=== PATIENT | male | born 1960 | race Caucasian/White ===

== ENCOUNTER 2017-10-12 16:05 | Emergency (ER) | payer BC, OTHER ==
[~2017-10-12] VITALS: Ht 177.8 cm; Wt 95.3 kg
[~2017-10-12 16:05] MED LIST: ASPIRIN81 MG PO; LASIX20 MG PO; LISINOPRIL-HCT1 EAC3 PO
[2017-10-12] MEDS ORDERED: HYDROMORPHONE 1MG/1ML INJ IV STA ×2 (16:17→22:08)
[2017-10-12] MEDS ORDERED: ONDANSETRON HCL INJ 2 MG/ML VIAL IV STA (16:17)
[2017-10-12] MEDS ORDERED: SODIUM CHLORIDE FLUSH 10 ML SYR INJ PRN (16:30)
[2017-10-12 16:56] LABS: BASOPHILS # (AUTO) 0.1 (0.0-0.1); BASOPHILS % 0.3 % (0.0-1.0); EOSINOPHILS # (AUTO) 0.2 (0.0-0.4); EOSINOPHILS % 1.2 % (0.0-6.0); HEMATOCRIT 39.5 % (38.2-49.6); HEMOGLOBIN 13.7 g/dL (14.0-18.0); LYMPHOCYTES # (AUTO) 3.6 (1.0-3.2); LYMPHOCYTES % 18.7 % (18.0-39.1); MEAN CORPUSCULAR HEMOGLOBIN 28.5 pg (28-32); MEAN CORPUSCULAR HGB CONC 34.7 g/dL (31-35); MEAN CORPUSCULAR VOLUME 82.3 fL (81-99); MONOCYTES % 4.9 % (4.4-11.3); NEUTROPHILS # (AUTO) 14.2 (2.1-6.9); NEUTROPHILS % 73.4 % (38.7-80.0); PLATELET COUNT 275 x10e3/uL (140-360); RED CELL DISTRIBUTION WIDTH 12.7 % (11.7-14.4)
[2017-10-12 17:20] LABS: ALBUMIN 4.4 g/dL (3.5-5.0); ALBUMIN/GLOBULIN RATIO 1.4 (0.8-2.0); ANION GAP 17.3 mmol/L (8-16); CALCIUM 9.5 mg/dL (8.4-10.2); CREATININE, SERUM 1.55 mg/dL (0.72-1.25); POTASSIUM 3.3 mmol/L (3.5-5.1)
[2017-10-12] MEDS ORDERED: MORPHINE SULFATE 2 MG/ML SYR ONE (18:23)
[2017-10-12] MEDS ORDERED: LEVOCETIRIZINE D5 MG PO (18:36)
[2017-10-12] MEDS ORDERED: MORPHINE SULFATE 5 MG/ML VIAL IV ONE (18:45)
[2017-10-12 18:51] LABS: BILIRUBIN,URINE NEGATIVE (NEGATIVE); CLARITY,URINE CLEAR (CLEAR); COLOR,URINE YELLOW (YELLOW); KETONES,URINE NEGATIVE (NEGATIVE); LEUKOCYTE ESTERASE ,URINE NEGATIVE (NEGATIVE); NITRITE,URINE NEGATIVE (NEGATIVE); PROTEIN,URINE DIPSTICK TRACE (NEGATIVE); URINE UROBILINOGEN 0.2 mg/dL (0.2 - 1)
[2017-10-12 19:07] LABS: AMORPHOUS SEDIMENT,URINE FEW (FEW); EPITHELIAL CELLS,URINE FEW /LPF; RBC,URINE 21-50 /HPF (0-5)
--- NOTE | 2017-10-12 19:11 | Diagnostic Imaging Report ---
EXAM: Lumbar spine HISTORY: Fell from 8 foot ladder COMPARISON: None DISCUSSION: 3 views of the lumbar spine (AP, lateral, L5-S1 view) There are 5 nonrib-bearing lumbar type vertebrae. Vertebral body heights are maintained. Moderate facet arthrosis affects the lower lumbar spine. Mild disc space narrowing at L4-L5 and L5-S1. Sacroiliac joints are unremarkable. Bones and soft tissues are unremarkable. IMPRESSION: Mild degenerative changes of the lumbar spine without fracture or malalignment. Ilya Pearce MD Signed by: Dr. Ilya Pearce M.D. on 10/12/2017 7:07 PM
--- NOTE | 2017-10-12 19:12 | Diagnostic Imaging Report ---
EXAMINATION: SHOULDER LEFT COMPLETE 10/12/2017 4:28 PM COMPARISON: None INDICATION: Fall from ladder DISCUSSION: 2 views of the left shoulder (crosstable AP and lateral) No fracture or dislocation. Joint spaces are maintained. Soft tissues are unremarkable IMPRESSION: No acute radiographic abnormality of the left shoulder Ilya Pearec MD Signed by: Dr. Ilya Pearce M.D. on 10/12/2017 7:09 PM
--- NOTE | 2017-10-12 19:17 | Diagnostic Imaging Report ---
EXAMINATION: PELVIS AP 1-2 VIEWS 10/12/2017 4:17 PM COMPARISON: None INDICATION: Fall from a ladder DISCUSSION: 1 view of the pelvis (cross table with patient on his right side Limited examination due to suboptimal patient positioning. The patient was unable to lie on his back for true AP radiographs. Questionable right superior pubic ramus displaced fracture. No other fractures are identified. IMPRESSION: Limited examination. Questionable fracture of the right superior pubic ramus. Recommend repeat radiographs when feasible or CT of the pelvis. Ilya Pearce MD Signed by: Dr. Ilya Pearce M.D. on 10/12/2017 7:13 PM
[2017-10-12] MEDS ORDERED: HYDROMORPHONE 1MG/1ML INJ IV ONE (20:00)
--- NOTE | 2017-10-12 20:31 | Diagnostic Imaging Report ---
ADDENDUM #1 There is sacralization of the left L5 vertebral body. The previously described left sacral fracture extends into the sacralized portion of L5. Ilya Pearce MD Signed by: Dr. Ilya Pearce M.D. on 10/12/2017 9:17 PM ORIGINAL REPORT EXAM: CT Pelvis WITHOUT contrast INDICATION: Fall from ladder COMPARISON: Plain radiographs of the pelvis from the same day TECHNIQUE: Pelvis were scanned utilizing a multidetector helical scanner from the iliac crest to the pubic symphysis without administration of IV contrast. Coronal and sagittal reformations were obtained. Routine protocol was performed. IV CONTRAST: None. ORAL CONTRAST: None RADIATION DOSE: Total DLP: 429.46 mGy*cm Estimated effective dose: (DLP x 0.015 x size factor) mSv COMPLICATIONS: None FINDINGS: LINES and TUBES: None. GI TRACT: No abnormal distention, wall thickening, or evidence of bowel obstruction. Appendix is normal. PELVIC ORGANS/BLADDER: The prostate is enlarged with median lobe hypertrophy. The bladder is unremarkable. LYMPH NODES: No lymphadenopathy. VESSELS: Unremarkable within the limits of a noncontrast examination. PERITONEUM / RETROPERITONEUM: No free intraperitoneal air or fluid. There is a bilateral pelvic hematoma with enlargement of the left piriformis muscle (series 2, image 22) likely due to hematoma. BONES: There are multiple bilateral pelvic fractures. There is a minimally displaced fracture through the left sacral wing which extends through the left sacroiliac joint and involves the posterior aspect of the left iliac wing. Bilateral comminuted fractures of the superior pubic rami with extension into the acetabula. Bilateral comminuted fractures of the inferior pubic rami. Chronic appearing bilateral L5 pars defects without anterolisthesis. SOFT TISSUES: There is a pelvic hematoma as described above. IMPRESSION: 1. Bilateral pelvic fractures * Bilateral comminuted fractures of the superior pubic rami with extension into both acetabula. * Bilateral comminuted inferior pubic rami fractures. * Minimally displaced fracture through the left sacral wing with extension into the left sacroiliac joint and involvement of the left posterior iliac wing. 2. Pelvic hematoma related to fractures. 3. Chronic appearing bilateral L5 pars defects without anterolisthesis. Ilya Pearce MD Signed by: Dr. Ilya Pearce M.D. on 10/12/2017 8:28 PM
--- NOTE | 2017-10-12 21:20 | Diagnostic Imaging Report ---
EXAM: CT Chest, Abdomen and Pelvis WITH contrast INDICATION: Trauma, fall off ladder COMPARISON: CT of the pelvis from the same day TECHNIQUE: Chest, abdomen and pelvis were scanned utilizing a multidetector helical scanner from the lung apex to the pubic symphysis before and after administration of IV contrast. Coronal and sagittal reformations were obtained. Routine protocol was performed. Scan was performed when during portal venous phase. IV CONTRAST: 150 mL of Omnipaque 300 ORAL CONTRAST: None RADIATION DOSE: Total DLP: 1073.77 mGy*cm Estimated effective dose: (DLP x 0.015 x size factor) mSv COMPLICATIONS: None FINDINGS: LINES and TUBES: None. LUNGS AND AIRWAYS: Right basilar subsegmental atelectasis. Airways are normal. PLEURA: No pleural effusion or pneumothorax. HEART AND MEDIASTINUM: The thyroid gland is normal. No mediastinal, hilar or axillary lymphadenopathy. The heart is normal in size.. There is no pericardial effusion. HEPATOBILIARY: Tiny hypodensity in the posterior hepatic dome (series 301, image 43) is most likely a small cyst. No other focal hepatic lesions. No biliary ductal dilation. GALLBLADDER: No radio-opaque stones or sludge. No wall thickening. SPLEEN: No splenomegaly. PANCREAS: No focal masses or ductal dilatation. ADRENALS: No adrenal nodules KIDNEYS/URETERS: Kidneys enhance symmetrically. No hydronephrosis. Indeterminate 1.9 cm hypodensity in the interpolar region of the right kidney. Other tiny hypodensities in both kidneys are too small to characterize, but most likely represent cysts. No stones. GI TRACT: No abnormal distention, wall thickening, or evidence of bowel obstruction. Appendix is normal. PELVIC ORGANS/BLADDER: Enlarged prostate with median lobe hypertrophy. LYMPH NODES: No lymphadenopathy. VESSELS: Unremarkable. PERITONEUM / RETROPERITONEUM: No free air or fluid. BONES: Bilateral pelvic hematoma related to pelvic fractures described below. Briefly, bilateral superior pubic rami, inferior pubic rami, and left sacral fracture with extension into the left iliac wing. See same day CT of the pelvis for more detailed description. Partial sacralization of the L5 vertebral body with pseudoarthrosis. The left sacral fracture extends into the sacralized portion of L5. Bilateral chronic L5 pars defects without anterolisthesis. SOFT TISSUES: Small bilateral pelvic hematoma related to fractures. IMPRESSION: 1. Bilateral pelvic fractures as above. There is partial sacralization of the L5 vertebral body with extension of the left sacral fracture into the sacralized portion of L5. 2. No solid organ injury. Ilya Pearce MD Signed by: Dr. Ilya Pearce M.D. on 10/12/2017 9:16 PM
[2017-10-12] MEDS ORDERED: SODIUM CHLORIDE 0.9% 1000ML 1,000 ML IV STA (21:44)
[2017-10-12] MEDS ORDERED: SODIUM CHLORIDE 0.9% 1000ML 1,000 ML ONE (21:44)
[2017-10-12 21:53] VITALS: BP 109/68
[2017-10-12] MEDS ORDERED: SODIUM CHLORIDE 0.9% 50ML 50 ML ONE (22:05)
[2017-10-12] MEDS ORDERED: IOPAMIDOL 370 MG/ML 200 ML INFUS..BTL INJ ONE (22:05)
== END 2017-10-12 22:36 | disposition short-term general hospital (02) ==
LOC: ER 16:05
DX: S32.512A Fracture of superior rim of left pubis, initial encounter for closed fracture (principal); S32.511A Fracture of superior rim of right pubis, initial encounter for closed fracture; S32.302A Unspecified fracture of left ilium, initial encounter for closed fracture; M25.512 Pain in left shoulder; W11.XXXA Fall on and from ladder, initial encounter; Y92.008 Other place in unspecified non-institutional (private) residence as the place of occurrence of the external cause; I10 Essential (primary) hypertension
CPT/HCPCS: 36415; 71260; 72100; 72170; 72192; 73030; 74177; 80053; 81001; 85025; 86850; 86900; 96374; 99284; J1170; J2270; J2405; J7030; Q9967

== ENCOUNTER 2017-11-27 14:28 | Outpatient (RCR) | payer BC ==
[~2017-11-27 14:28] MED LIST changes: +LEVOCETIRIZINE D5 MG PO
== END 2017-11-28 ==
LOC: PT 14:28
PROVIDERS: ATTEND Physician Assistant
DX: S32.89XA Fracture of other parts of pelvis, initial encounter for closed fracture (principal); M62.81 Muscle weakness (generalized); R26.9 Unspecified abnormalities of gait and mobility

== ENCOUNTER 2017-12-25 14:43 | Outpatient (RCR) | payer BC | END 2017-12-26 | LOC: PT 14:43 | PROVIDERS: ATTEND Physician Assistant | DX: S32.89XA Fracture of other parts of pelvis, initial encounter for closed fracture (principal); R26.2 Difficulty in walking, not elsewhere classified; M62.81 Muscle weakness (generalized) | CPT/HCPCS: 97139 ==

== ENCOUNTER 2018-01-10 14:25 | Outpatient (RCR) | payer BC | END 2018-01-26 | LOC: PT 14:25 | PROVIDERS: ATTEND Physician Assistant | DX: S32.89XA Fracture of other parts of pelvis, initial encounter for closed fracture (principal); M62.81 Muscle weakness (generalized); R26.2 Difficulty in walking, not elsewhere classified | CPT/HCPCS: 97139 ==

== ENCOUNTER → 2018-10-18 | Day surgery (SDC) | payer BC ==
[~2018-10-18] MED LIST changes: +CRESTOR10 MG PO; +FENTANYL CITRATE/PF 100MCG/2 ML INJ ONE; +GLUCAGON FOR INJ 1 MG VIAL ONE; +HYOSCYAMINE SULFATE 0.5 MG/ML INJ ONE; +METOPROLOL SUCC50 MG PO; +MIDAZOLAM HCL 2 MG/2 ML VIAL ONE; +PROPOFOL IV EMULSION 10 MG/ML 50 ML VIAL ONE; +ZOLPIDEM TARTRAT5 MG PO
--- OUTSIDE RECORDS SUMMARY | 2018-10-18 08:06 | XMS REPORT ---
Author Author [facility] Address Unknown Phone Unavailable Care Team Providers Care Speech Language Pathologist Assistant Name Role Phone Marleni ANTHONY Unavailable Unavailable Problems This patient has no known problems. Allergies, Adverse Reactions, Alerts This patient has no known allergies or adverse reactions. Medications This patient has no known medications. Results Test Description Test Time Test Comments Text Results Atomic Results Result Comments CT PELVIS WO [address] [address] Patient Name: EVELIO PETERS MR #: [id number] : 1960 Age/Sex: 57/M Req #: [id number] Adm Physician: Ordered by: DARIAN HAMILTON Report #: [id number] Location: ER Room/Bed: Procedure: [id number] CT/CT PELVIS WO Exam Date: 10/12/17 Exam Time: 1954 REPORT STATUS: Signed ADDENDUM #1 There is sacralization of the left L5 vertebral body. The previously described left sacral fracture extends into the sacralized portion of L5. Richard Pearce MD Signed by: Dr. Richard Pearce M.D. on 10/12/2017 9:17 PM ORIGINAL REPORT EXAM: CT Pelvis WITHOUT contrast INDICATION: Fall from ladder COMPARISON: Plain radiographs of the pelvis from the same day TECHNIQUE: Pelvis were scanned utilizing a multidetector helical scanner from the iliac crest to the pubic symphysis without administration of IV contrast. Coronal and sagittal reformations were obtained. Routine protocol was performed. IV CONTRAST: None. ORAL CONTRAST: None RADIATION DOSE: Total DLP: 429.46 mGy*cm Estimated effective dose: (DLP x 0.015 x size factor) mSv COMPLICATIONS: None FINDINGS: LINES and TUBES: None. GI TRACT: No abnormal distention, wall thickening, or evidence of bowel obstruction. Appendix is normal. PELVIC ORGANS/BLADDER: The prostate is enlarged with median lobe hypertrophy. The bladder is unremarkable. LYMPH NODES: No lymphadenopathy. VESSELS: Unremarkable within the limits of a noncontrast examination. PERITONEUM / RETROPERITONEUM: No free intraperitoneal air or fluid. There is a bilateral pelvic hematoma with enlargement of the left piriformis muscle (series 2, image 22) likely due to hematoma. BONES: There are multiple bilateral pelvic fractures. There is a minimally displaced fracture through the left sacral wing which extends through the left sacroiliac joint and involves the posterior aspect of the left iliac wing. Bilateral comminuted fractures of the superior pubic rami with extension into the acetabula. Bilateral comminuted fractures of the inferior pubic rami. Chronic appearing bilateral L5 pars defects without anterolisthesis. SOFT TISSUES: There is a pelvic hematoma as described above. IMPRESSION: 1. Bilateral pelvic fractures * Bilateral comminuted fractures of the superior pubic rami with extension into both acetabula. * Bilateral comminuted inferior pubic rami fractures. * Minimally displaced fracture through the left sacral wing with extension into the left sacroiliac joint and involvement of the left posterior iliac wing. 2. Pelvic hematoma related to fractures. 3. Chronic appearing bilateral L5 pars defects without anterolisthesis. Richard Pearce MD Signed by: Dr. Richard Pearce M.D. on 10/12/2017 8:28 PM Dictated By: RICHARD PEARCE MD 16 Transcribed By: MAURICE on 10/12/172027 COPY TO: DARIAN HAMILTON SP LUMBAR AP LATERAL 2-3VWS [address] [place] [address] Patient Name: EVELIO PETERS MR #: [id number] : 1960 Age/Sex: 57/M Req #: [id number] Adm Physician: Ordered by: DARIAN HAMILTON Report #: [id number] Location: ER Room/Bed: Procedure: [id number] DX/SP LUMBAR AP LATERAL 2- 3VWS Exam Date: 10/12/17 Exam Time: 1830 REPORT STATUS: Signed EXAM: Lumbar spine HISTORY: Fell from 8 foot ladder COMPARISON: None DISCUSSION: 3 views of the lumbar spine (AP, lateral, L5-S1 view) There are 5 nonrib-bearing lumbar type vertebrae. Vertebral body heights are maintained. Moderate facet arthrosis affects the lower lumbar spine. Mild disc space narrowing at L4-L5 and L5-S1. Sacroiliac joints are unremarkable. Bones and soft tissues are unremarkable. IMPRESSION: Mild degenerative changes of the lumbar spine without fracture or malalignment. Richard Pearce MD Signed by: Dr. Richard Pearce M.D. on 10/12/2017 7:07 PM Dictated By: RICHARD PEARCE MD 06 Transcribed By: MAURICE on 10/12/171906 COPY TO: DARIAN HAMILTON SHOULDER LEFT COMPLETE [facility] [address] [place], [place] [address] Patient Name: EVELIO PETERS MR #: [id number] : 1960 Age/Sex: 57/M Req #: [id number] Adm Physician: Ordered by: DARIAN HAMILTON Report #: [id number] Location: ER Room/Bed: Procedure: [id number] DX/SHOULDER LEFT COMPLETE Exam Date: 10/12/17 Exam Time: 1830 REPORT STATUS: Signed EXAMINATION: SHOULDER LEFT COMPLETE 10/12/2017 4:28 PM COMPARISON: None INDICATION: Fall from ladder DISCUSSION: 2 views of the left shoulder (crosstable AP and lateral) No fracture or dislocation. Joint spaces are maintained. Soft tissues are unremarkable IMPRESSION: No acute radiographic abnormality of the left shoulder Richard Pearce MD Signed by: Dr. Richard Pearce M.D. on 10/12/2017 7:09 PM Dictated By: RICHARD PEARCE MD 08 Transcribed By: MAURICE on 10/12/171908 COPY TO: DARIAN HAMILTON PELVIS AP 1-2 VIEWS [place] [address] Patient Name: EVELIO PETERS MR #: [id number] : 1960 Age/Sex: 57/M Req #: [id number] Adm Physician: Ordered by: DARIAN HAMILTON Report #: [id number] Location: ER Room/Bed: Procedure: [id number] DX/PELVIS AP 1-2 VIEWS Exam Date: 10/12/17 Exam Time: 183 REPORT STATUS: Signed EXAMINATION: PELVIS AP 1-2 VIEWS 10/12/2017 4:17 PM COMPARISON: None INDICATION: Fall from a ladder DISCUSSION: 1 view of the pelvis (cross table with patient on his right side Limited examination due to suboptimal patient positioning. The patient was unable to lie on his back for true AP radiographs. Questionable right superior pubic ramus displaced fracture. No other fractures are identified. IMPRESSION: Limited examination. Questionable fracture of the right superior pubic ramus. Recommend repeat radiographs when feasible or CT of the pelvis. Richard Pearce MD Signed by: Dr. Richard Pearce M.D. on 10/12/2017 7:13 PM Dictated By: RICHARD PEARCE MD 12 Transcribed By: MAURICE on 10/12/171912 COPY TO: DARIAN HAMILTON CT CHEST W [place] [address] Patient Name: EVELIO PETERS MR #: [id number] : 1960 Age/Sex: 57/M Req #: [id number] Adm Physician: Ordered by: DARIAN HAMILTON Report #: [id number] Location: ER Room/Bed: Procedure: [id number] CT/CT CHEST W Exam Date: 10/12/17 Exam Time: 2029 REPORT STATUS: Signed EXAM: CT Chest, Abdomen and Pelvis WITH contrast INDICATION: Trauma, fall off ladder COMPARISON: CT of the pelvis from the same day TECHNIQUE: Chest, abdomen and pelvis were scanned utilizing a multidetector helical scanner from the lung apex to the pubic symphysis before and after administration of IV contrast. Coronal and sagittal reformations were obtained. Routine protocol was performed. Scan was performed when during portal venous phase. IV CONTRAST: 150 mL of Omnipaque 300 ORAL CONTRAST: None RADIATION DOSE: Total DLP: 1073.77 mGy*cm Estimated effective dose: (DLP x 0.015 x size factor) mSv COMPLICATIONS: None FINDINGS: LINES and TUBES: None. LUNGS AND AIRWAYS: Right basilar subsegmental atelectasis. Airways are normal. PLEURA: No pleural effusion or pneumothorax. HEART AND MEDIASTINUM: The thyroid gland is normal. No mediastinal, hilar or axillary lymphadenopathy. The heart is normal in size.. There is no pericardial effusion. HEPATOBILIARY: Tiny hypodensity in the posterior hepatic dome (series 301, image 43) is most likely a small cyst. No other focal hepatic lesions. No biliary ductal dila tion. GALLBLADDER: No radio-opaque stones or sludge. No wall thickening. SPLEEN: No splenomegaly. PANCREAS: No focal masses or ductal dilatation. ADRENALS: No adrenal nodules KIDNEYS/URETERS: Kidneys enhance symmetrically. No hydronephrosis. Indeterminate 1.9 cm hypodensity in the interpolar region of the right kidney. Other tiny hypodensities in both kidneys are too small to characterize, but most likely represent cysts. No stones. GI TRACT: No abnormal distention, wall thickening, or evidence of bowel obstruction. Appendix is normal. PELVIC ORGANS/BLADDER: Enlarged prostate with median lobe hypertrophy. LYMPH NODES: No lymphadenopathy. VESSELS: Unremarkable. PERITONEUM / RETROPERITONEUM: No free air or fluid. BONES: Bilateral pelvic hematoma related to pelvic fractures described below. Briefly, bilateral superior pubic rami, inferior pubic rami, and left sacral fracture with extension into the left iliac wing. See same day CT of the pelvis for more detailed description. Partial sacralization of the L5 vertebral body with pseudoarthrosis. The left sacral fracture extends into the sacralized portion of L5. Bilateral chronic L5 pars defects without anterolisthesis. SOFT TISSUES: Small bilateral pelvic hematoma related to fractures. IMPRESSION: 1. Bilateral pelvic fractures as above. There is partial sacralization of the L5 vertebral body with extension of the left sacral fracture into the sacralized portion of L5. 2. No solid organ injury. Richard Pearce MD Signed by: Dr. Richard Pearce M.D. on 10/12/2017 9:16 PM Dictated By: RICHARD PEARCE MD 15 Transcribed By: MAURICE on 10/12/172115 COPY TO: DARIAN HAMILTON CT ABDOMEN/PELVIS W [place] [address] Patient Name: EVELIO PETERS MR #: [id number] : 1960 Age/Sex: 57/M Req #: [id number] Adm Physician: Ordered by: DARIAN HAMILTON Report #: [id number] Location: ER Room/Bed: Procedure: [id number] CT/CT ABDOMEN/PELVIS W Exam Date: 10/12/17 Exam Time: 2021 REPORT STATUS: Signed EXAM: CT Chest, Abdomen and Pelvis WITH contrast INDICATION: Trauma, fall off ladder COMPARISON: CT of the pelvis from the same day TECHNIQUE: Chest, abdomen and pelvis were scanned utilizing a multidetector helical scanner from the lung apex to the pubic symphysis before and after administration of IV contrast. Coronal and sagittal reformations were obtained. Routine protocol was performed. Scan was performed when during portal venous phase. IV CONTRAST: 150 mL of Omnipaque 300 ORAL CONTRAST: None RADIATION DOSE: Total DLP: 1073.77 mGy*cm Estimated effective dose: (DLP x 0.015 x size factor) mSv COMPLICATIONS: None FINDINGS: LINES and TUBES: None. LUNGS AND AIRWAYS: Right basilar subsegmental atelectasis. Airways are normal. PLEURA: No pleural effusion or pneumothorax. HEART AND MEDIASTINUM: The thyroid gland is normal. No mediastinal, hilar or axillary lymphadenopathy. The heart is normal in size.. There is no pericardial effusion. HEPATOBILIARY: Tiny hypodensity in the posterior hepatic dome (series 301, image 43) is most likely a small cyst. No other focal hepatic lesions. No biliary ductal dilation. GALLBLADDER: No radio-opaque stones or sludge. No wall thickening. SPLEEN: No splenomegaly. PANCREAS: No focal masses or ductal dilatation. ADRENALS: No adrenal nodules KIDNEYS/URETERS: Kidneys enhance symmetrically. No hydronephrosis. Indeterminate 1.9 cm hypodensity in the interpolar region of the right kidney. Other tiny hypodensities in both kidneys are too small to characterize, but most likely represent cysts. No stones. GI TRACT: No abnormal distention, wall thickening, or evidence of bowel obstruction. Appendix is normal. PELVIC ORGANS/BLADDER: Enlarged prostate with median lobe hypertrophy. LYMPH NODES: No lymphadenopathy. VESSELS: Unremarkable. PERITONEUM / RETROPERITONEUM: No free air or fluid. BONES: Bilateral pelvic hematoma related to pelvic fractures described below. Briefly, bilateral superior pubic rami, inferior pubic rami, and left sacral fracture with extension into the left iliac wing. See same day CT of the pelvis for more detailed description. Partial sacralization of the L5 vertebral body with pseudoarthrosis. The left sacral fracture extends into the sacralized portion of L5. Bilateral chronic L5 pars defects without anterolisthesis. SOFT TISSUES: Small bilateral pelvic hematoma related to fractures. IMPRESSION: 1. Bilateral pelvic fractures as above. There is partial sacralization of the L5 vertebral body with extension of the left sacral fracture into the sacralized portion of L5. 2. No solid organ injury. Richard Pearce MD Signed by: Dr. Richard Pearce M.D. on 10/12/2017 9:16 PM Dictated By: RICHARD PEARCE MD 15 Transcribed By: MAURICE on 10/12/172115 COPY TO: DARIAN HAMILTON MRI PELVIS W/WO (PROSTATE) CLINICAL INDICATION: R97.2 Elevated prostate specific antigenMODALITY: Siemens Skyra 3.0 Micaela MRITECHNIQUE: T2 sagittal and axial, T1 axial, T1 coronal fat sat, STIR, diffusion and dynamic contrast enhanced imaging are performed. Quantitative analysis is performed with DynaCAD. IV contrast is administered, 15.0 ml Multihance Dynamic post-contrast imaging with DynaCAD quantitative analysis are accomplished.[id number] MR DynaCADIMPRESSION:No suspicious focal lesions are targeted. No evidence of extra prostatic malignancy. Prominent BPH changes.PI-RADS 1: Most probably benign.FINDINGS:COMPARISON: NoneNormal regional marrow signal is observed. No lytic or blastic osseous metastatic lesions.No common iliac, internal iliac, external iliac, inguinal or suspicious tish-prostatic lymph nodes.Regional bowel appears unremarkable. No mural or intraluminal bladder mass. Anterior abdominal wall and pelvic floor are unremarkable. No evidence of ascites.Estimated prostate volume is 100.32 ml. No suspicious focal lesions are targeted. There are prominent BPH changes. The hypertrophied median lobes protrude into the base of the bladder.Seminal vesicles exhibit normal signal intensity. Neurovascular bundles are symmetric in appearance without definite tumor involvement. The prostate capsule is smooth in contour.
--- OUTSIDE RECORDS SUMMARY | 2018-10-18 08:06 | XMS REPORT | Summary of Care ---
Author Author Soniya Rizo Organization Unknown Address Unknown Phone Unavailable Care Team Providers Care Agronomy Location Manager Name Role Phone SABINA LYNN Unavailable Unavailable Unavailable Unavailable Functional Status Name Dates Details Functional status health issues are not documented Status: Name Dates Details Cognitive status health issues are not documented Status: Problems Name Dates Details Pubic ramus fracture (808.2, S32.599A) Status: Active Closed severely displaced zone II fracture of sacrum with routine healing, subsequent encounter (V54.17, S32.122D) Status: Active Pelvis fracture (808.8, S32.9XXA) Status: Active Medications Name Dates Details Medications not documented Allergies and Adverse Reactions Name Dates Details Allergy history not documented Status: Procedures Procedure Dates Details [U] XRAY PELVIS MIN 3 V[place] [id number] Date: 03-Jan-2018 Immunization Name Dates Details Immunizations not documented Social History Name Dates Details Unknown if ever smoked Vital Signs Date Test Result Details No Known Vitals to report Results Date Description Value Details [id number] [U] XRAY PELVIS MIN 3 VWS 90997 XR PELVIS MIN 3 VWS Images acquired, not reported on this accession number. Plan of Care Name Dates Details Planned Observations Planned Goals not documented Planned Encounters Appointment; SABINA JONAS PA On: 07-Jan-2018 9:30 Interventions Provided Labs/Procedures/Imaging* [U] XRAY PELVIS MIN 3 VWS [id number]; To Be Done: 07 Jan 2018 Instructions Name Dates Details Instructions not documented Encounters Appointment; SABINA JONAS PA Encounter Diagnosis: Problem not documented On: 30-Oct-2017 9:30 Appointment; SABINA JONAS PA Encounter Diagnosis: Problem not documented On: 10-Dec-2017 9:30 Appointment; SABINA JONAS PA Encounter Diagnosis: Problem not documented On: 07-Jan-2018 9:30
--- OUTSIDE RECORDS SUMMARY | 2018-10-18 08:06 | XMS REPORT | Summary of Care ---
Author Author [facility] Organization [facility] Address Unknown Phone Unavailable Encounter MAXIMILIANO Jones(VICTORIANO) [id number] Date(s): 10/12/17 - 10/16/17 [facility] [address] [employer] provided by [facility] [place] [address]- Discharge Disposition: Home or Self Care Attending Physician: Reyes Thompson MD Admitting Physician: Reyes Thompson MD Vital Signs 1 2 3 Most recent to oldest [Reference Range]: 177.8 cm (10/13/17 6:37 AM) 177.8 cm (10/12/17 11:07 PM) Height 98.3 DegF (10/16/17 11:15 AM) 98.8 DegF (10/16/17 7:15 AM) 98.0 DegF (10/16/17 5:16 AM) Temperature Oral [96.4-99.1 DegF] 136/77 mmHg (10/16/17 11:15 AM) 128/79 mmHg (10/16/17 7:15 AM) 123/73 mmHg (10/16/17 5:16 AM) Blood Pressure [90-140/60-90 mmHg] 20 BRMIN (10/16/17 11:15 AM) 20 BRMIN (10/16/17 7:15 AM) 18 BRMIN (10/16/17 5:16 AM) Respiratory Rate [14-20 BRMIN] 53 bpm *LOW* (10/16/17 11:15 AM) 68 bpm (10/16/17 7:15 AM) 71 bpm (10/16/17 5:16 AM) Peripheral Pulse Rate [60-100 bpm] 95.455 kg (10/13/17 6:37 AM) 95.455 kg (10/12/17 11:07 PM) Weight 30.2 m2 (10/13/17 6:37 AM) 30.2 m2 (10/12/17 11:07 PM) Body Mass Index Problem List Condition Effective Dates Status Health Status Informant Benign Resolved hypertension(Confirm ed) Allergies, Adverse Reactions, Alerts Substance Reaction Severity Status NKDA Active Medications acetaminophen 1,000 mg, 2 tab, Route: PO, Drug form: TAB, Q6Hnow, Dosing Weight 95.455, kg, St art date: 10/13/17 5:00:00 SALVAGE ENGINEER, Duration: 30 day, Stop date: 11/12/17 3:00:00 CS T Notes: Max acetaminophen 4000 mg/day (4 gm/day). (Same as: Tylenol Extra Streng th) Start Date: 10/13/17 Stop Date: 10/16/17 Status: Discontinued acetaminophen 1,000 mg, 2 tab, Route: PO, Drug form: TAB, Q6H, Dosing Weight 95.455, kg, Prior ity: NOW, Start date: 10/13/17 2:54:00 SALVAGE ENGINEER, Duration: 30 day, Stop date: 8 0:00:00 SALVAGE ENGINEER Notes: Max acetaminophen 4000 mg/day (4 gm/day). (Same as: Tylenol Extra Streng th) Start Date: 10/13/17 Stop Date: 10/13/17 Status: Discontinued acetaminophen (ANES) 10 mg Route: IV, Drug form: INJ, Start date: 10/13/17 11:00:00 SALVAGE ENGINEER, Stop date: 7 12:00:00 SALVAGE ENGINEER Start Date: 10/13/17 Stop Date: 10/13/17 Status: Completed Al hydroxide/Mg hydroxide/simethicone 200 mg-200 mg-20 mg/5 mL oral suspension 30 mL, Route: PO, Drug Form: SUSP, Dosing Weight 95.455, kg, Q4H, PRN Indigestio n, Start date: 10/13/17 4:57:00 SALVAGE ENGINEER, Duration: 30 day, Stop date: 11/12/17 4:56: 00 SALVAGE ENGINEER Notes: (aluminum hydroxide-magnesium hyd-simethicone 600-293-30tc/5ml 30 ml ud S US) Start Date: 10/13/17 Stop Date: 10/16/17 Status: Discontinued Ancef + sterile water 20 mL 2 gm, Route: IVPB, Q8H, Dosing Weight 95.455, kg, Start date: 10/13/17 18:00:00 SALVAGE ENGINEER, Duration: 1 day, Stop date: 10/14/17 10:00:00 SALVAGE ENGINEER, ABX Indication: Surgical Prophylaxis Notes: (Same As: Ancef, Kefzol) MEDICATION WASTE Product Size: 1000 mgP roduct Wasted: ___ mg Start Date: 10/13/17 Stop Date: 10/14/17 Status: Completed bisacodyl 10 mg, 1 supp, Route: WI, Drug form: SUPP, Daily, Dosing Weight 95.455, kg, PRN Constipation, Start date: 10/13/17 4:57:00 SALVAGE ENGINEER, Duration: 30 day, Stop date: 4:56:00 SALVAGE ENGINEER Notes: (Same As: Dulcolax, Bisco-Lax) Start Date: 10/13/17 Stop Date: 10/16/17 Status: Discontinued bisacodyl 10 mg rectal suppository 10 mg=1 supp, WI, Daily, PRN Constipation, # 5 supp, 0 Refill(s), Pharmacy: [facility] [id number] Start Date: 10/16/17 Stop Date: 10/16/17 Status: Completed ceFAZolin (ANES) Route: IV, Drug form: INJ, ONCE, Stop date: 10/13/17 11:14:00 SALVAGE ENGINEER Start Date: 10/13/17 Stop Date: 10/13/17 Status: Completed celecoxib 200 mg, 1 cap, Route: PO, Drug form: CAP, Q12H, Dosing Weight 95.455, kg, Priori ty: NOW, Start date: 10/13/17 2:54:00 SALVAGE ENGINEER, Duration: 48 hr, Stop date: 10/14/17 21:00:00 SALVAGE ENGINEER Notes: NSAID. Please check indication. Not for seizure. (Same As: CeleBREX) Start Date: 10/13/17 Stop Date: 10/13/17 Status: Discontinued cetirizine 5 mg, 1 tab, Route: PO, Drug form: TAB, Daily, Dosing Weight 95.455, kg, Start d ate: 10/13/17 9:00:00 SALVAGE ENGINEER, Duration: 30 day, Stop date: 11/11/17 9:00:00 SALVAGE ENGINEER Notes: (Same As: Zyrtec) Start Date: 10/13/17 Stop Date: 10/16/17 Status: Discontinued Crestor 10 mg, 1 tab, Route: PO, Drug form: TAB, Bedtime, Dosing Weight 95.455, kg, Star t date: 10/13/17 21:00:00 SALVAGE ENGINEER, Duration: 30 day, Stop date: 11/11/17 21:00:00 CS T Notes: (Same As: Crestor) Start Date: 10/13/17 Stop Date: 10/16/17 Status: Discontinued Crestor 10 mg oral tablet 10 mg=1 tab, PO, Bedtime, 0 Refill(s) Start Date: 10/13/17 Stop Date: 11/12/17 Status: Ordered dexamethasone (ANES) Route: IV, Drug form: INJ, ONCE, Stop date: 10/13/17 11:29:00 SALVAGE ENGINEER Start Date: 10/13/17 Stop Date: 10/13/17 Status: Completed Dilaudid 0.5 mg, 0.25 mL, Route: IV, Drug form: INJ, ONCE, Dosing Weight 95.455, kg, Star t date: 10/12/17 23:55:00 SALVAGE ENGINEER, Stop date: 10/12/17 23:55:00 SALVAGE ENGINEER Notes: Same as Dilaudid Start Date: 10/12/17 Stop Date: 10/13/17 Status: Completed Dilaudid 0.5 mg, 0.25 mL, Route: IVP, Drug form: INJ, ONCE, Dosing Weight 95.455, kg, Clara ority: STAT, Start date: 10/13/17 3:05:00 SALVAGE ENGINEER, Stop date: 10/13/17 3:05:00 SALVAGE ENGINEER Notes: Same as Dilaudid Start Date: 10/13/17 Stop Date: 10/13/17 Status: Completed diphenhydrAMINE 25 mg, 1 cap, Route: PO, Drug form: CAP, Bedtime, Dosing Weight 95.455, kg, PRN Insomnia, Start date: 10/13/17 4:57:00 SALVAGE ENGINEER, Duration: 30 day, Stop date: 8 4:56:00 SALVAGE ENGINEER Notes: (Same as: Benadryl) Start Date: 10/13/17 Stop Date: 10/16/17 Status: Discontinued diphenhydrAMINE 12.5 mg, 5 mL, Route: PO, Drug form: LIQ, Q6H, Dosing Weight 95.455, kg, PRN Itc carter, Start date: 10/13/17 4:57:00 SALVAGE ENGINEER, Duration: 30 day, Stop date: 11/12/17 4: 56:00 SALVAGE ENGINEER Notes: (Same as: Benadryl) Start Date: 10/13/17 Stop Date: 10/16/17 Status: Discontinued docusate 100 mg, 1 cap, Route: PO, Drug form: CAP, BID, Dosing Weight 95.455, kg, Start d ate: 10/13/17 9:00:00 SALVAGE ENGINEER, Duration: 30 day, Stop date: 11/11/17 17:00:00 SALVAGE ENGINEER Notes: (Same as: Colace) (Do Not Crush) Start Date: 10/13/17 Stop Date: 10/16/17 Status: Discontinued docusate 100 mg, 1 cap, Route: PO, Drug form: CAP, Q12H, Dosing Weight 95.455, kg, Start date: 10/13/17 9:00:00 SALVAGE ENGINEER, Duration: 30 day, Stop date: 11/11/17 21:00:00 SALVAGE ENGINEER Notes: (Same as: Colace) (Do Not Crush) Start Date: 10/13/17 Stop Date: 10/13/17 Status: Canceled ePHEDrine (ANES) Route: IV, Drug form: INJ, ONCE, Stop date: 10/13/17 11:29:00 SALVAGE ENGINEER Start Date: 10/13/17 Stop Date: 10/13/17 Status: Completed fentaNYL (ANES) Route: IV, Drug form: INJ, ONCE, Stop date: 10/13/17 11:24:00 SALVAGE ENGINEER Start Date: 10/13/17 Stop Date: 10/13/17 Status: Completed furosemide 20 mg oral tablet 20 mg=1 tab, PO, Daily, 0 Refill(s) Start Date: 10/13/17 Status: Ordered gabapentin 300 mg, 1 cap, Route: PO, Drug form: CAP, Q8Hnow, Dosing Weight 95.455, kg, Star t date: 10/13/17 5:00:00 SALVAGE ENGINEER, Duration: 30 day, Stop date: 11/11/17 22:00:00 SALVAGE ENGINEER Notes: (Same as: Neurontin) Start Date: 10/13/17 Stop Date: 10/16/17 Status: Discontinued gabapentin 300 mg oral capsule 300 mg=1 cap, PO, Q8Hnow, # 60 cap, 0 Refill(s), Pharmacy: [facility] [id number] Start Date: 10/16/17 Status: Ordered glycopyrrolate (ANES) Route: IV, Drug form: INJ, ONCE, Stop date: 10/13/17 13:33:00 SALVAGE ENGINEER Start Date: 10/13/17 Stop Date: 10/13/17 Status: Completed hydrochlorothiazide 25 mg oral tablet 25 mg, 1 tab, Route: PO, Drug form: TAB, Daily, Start date: 10/13/17 9:00:00 SALVAGE ENGINEER , Duration: 30 day, Stop date: 11/11/17 9:00:00 SALVAGE ENGINEER Notes: (Same as: Hydrodiuril) With food. Start Date: 10/13/17 Stop Date: 10/16/17 Status: Discontinued hydrochlorothiazide-lisinopril 25 mg-20 mg oral tablet 1 tab, Route: PO, Dosing Weight 95.455, kg, Daily, Start date: 10/13/17 9:00:00 SALVAGE ENGINEER, Duration: 30 day, Stop date: 11/11/17 9:00:00 SALVAGE ENGINEER Start Date: 10/13/17 Stop Date: 10/13/17 Status: Discontinued hydrochlorothiazide-lisinopril 25 mg-20 mg oral tablet 1.5 tab, PO, Daily, # 30 tab, 0 Refill(s) Start Date: 10/13/17 Status: Ordered hydromorphone 0.3 mg, 0.15 mL, Route: IVP, Drug form: INJ, Q4H, Dosing Weight 95.455, kg, PRN Pain Score 7-10, Start date: 10/13/17 4:57:00 SALVAGE ENGINEER, Duration: 30 day, Stop date: 11/12/17 4:56:00 SALVAGE ENGINEER Notes: Same as Dilaudid Start Date: 10/13/17 Stop Date: 10/16/17 Status: Discontinued hydromorphone (ANES) Route: IV, Drug Form: INJ, ONCE, Stop date: 10/13/17 13:33:00 SALVAGE ENGINEER Start Date: 10/13/17 Stop Date: 10/13/17 Status: Completed Isolyte S PH-7.4 (Bolus) IV 1,000 mL, 1000 ml/hr, Route: IV, Drug Form: SOLN, Dosing Weight 95.455, kg, ONCE , Start date: 10/13/17 2:51:00 SALVAGE ENGINEER, Stop date: 10/13/17 2:51:00 SALVAGE ENGINEER Notes: (Same as: Isolyte S PH 7.4) Start Date: 10/13/17 Stop Date: 10/13/17 Status: Completed Lactated Ringers Injection IV (ANES) 1000 mL Route: IV, Total Volume: 1,000, Start date: 10/13/17 10:18:00 SALVAGE ENGINEER, Stop date: 11:18:00 SALVAGE ENGINEER Start Date: 10/13/17 Stop Date: 10/13/17 Status: Completed Lactated Ringers IV 1,000 mL 1,000 mL, Rate: 100 ml/hr, Infuse over: 10 hr, Route: IV, Dosing Weight 95.455 k g, Total Volume: 1,000, Start date: 10/13/17 13:48:00 SALVAGE ENGINEER, Duration: 30 day, Sto p date: 11/12/17 13:47:00 SALVAGE ENGINEER, 2.19, m2 Start Date: 10/13/17 Stop Date: 10/16/17 Status: Discontinued levocetirizine 5 mg oral tablet 5 mg=1 tab, PO, QPM, # 30 tab, 1 Refill(s) Start Date: 10/13/17 Stop Date: 11/12/17 Status: Ordered lidocaine (ANES) Route: IV, Drug form: INJ, ONCE, Stop date: 10/13/17 11:14:00 SALVAGE ENGINEER Start Date: 10/13/17 Stop Date: 10/13/17 Status: Completed Lidoderm 5% topical film (patch) 1 patch, Route: TOP, Q24H, Drug form: FILM, Start date: 10/13/17 3:00:00 SALVAGE ENGINEER, Du ration: 30 day, Stop date: 11/11/17 3:00:00 SALVAGE ENGINEER Notes: Apply only once for up to 12 hours in [id number] period (12 hours on and 12 hours off).(Same as: Lidoderm)"Remove old patch before application of new patch" Start Date: 10/13/17 Stop Date: 10/13/17 Status: Discontinued lisinopril 20 mg, 1 tab, Route: PO, Drug form: TAB, Daily, Start date: 10/13/17 9:00:00 SALVAGE ENGINEER , Duration: 30 day, Stop date: 11/11/17 9:00:00 SALVAGE ENGINEER Notes: (Same as: Prinivil, Zestril) Start Date: 10/13/17 Stop Date: 10/16/17 Status: Discontinued Lovenox 30 mg, 0.3 mL, Route: SUB-Q, Drug form: INJ, Q12H, Dosing Weight 95.455, kg, Sta rt date: 10/13/17 11:00:00 SALVAGE ENGINEER, Stop date: 11/12/17 4:00:00 SALVAGE ENGINEER Notes: (Same as: Lovenox) Start Date: 10/13/17 Stop Date: 10/16/17 Status: Discontinued Lovenox 40 mg/0.4 mL subcutaneous solution 40 mg, SUB-Q, Daily, X 21 day, # 21 syr, 0 Refill(s), [place] [facility] [id number] Start Date: 10/16/17 Stop Date: 11/06/17 Status: Ordered methocarbamol 750 mg, 1 tab, Route: PO, Drug form: TAB, Q6H, Dosing Weight 95.455, kg, Start d ate: 10/13/17 5:00:00 SALVAGE ENGINEER, Stop date: 11/11/17 22:00:00 SALVAGE ENGINEER Notes: (Same as:Robaxin) Start Date: 10/13/17 Stop Date: 10/14/17 Status: Discontinued methocarbamol 750 mg oral tablet 750 mg=1 tab, PO, Q6H-02, # 30 tab, 0 Refill(s), Pharmacy: [id number] Start Date: 10/16/17 Stop Date: 10/16/17 Status: Completed midazolam (ANES) Route: IV, Drug form: SOLN, ONCE, Stop date: 10/13/17 11:14:00 SALVAGE ENGINEER Start Date: 10/13/17 Stop Date: 10/13/17 Status: Completed neostigmine (ANES) Route: IV, Drug form: INJ, ONCE, Stop date: 10/13/17 13:33:00 SALVAGE ENGINEER Start Date: 10/13/17 Stop Date: 10/13/17 Status: Completed ondansetron 4 mg, 2 mL, Route: IVP, Drug form: INJ, Q8H, Dosing Weight 95.455, kg, PRN Nause a & Vomiting, Start date: 10/13/17 4:57:00 SALVAGE ENGINEER, Duration: 30 day, Stop date: 11/12/17 4:56:00 SALVAGE ENGINEER Notes: (Same as: Kitty) MEDICATION WASTE Product Size: 4 mgProduct Was yelitza: ___ mg Start Date: 10/13/17 Stop Date: 10/16/17 Status: Discontinued ondansetron (ANES) Route: IV, Drug form: INJ, ONCE, Stop date: 10/13/17 13:33:00 SALVAGE ENGINEER Start Date: 10/13/17 Stop Date: 10/13/17 Status: Completed oxyCODONE 5 mg immediate release 5 mg, 1 tab, Route: PO, Drug form: TAB, Q4H, Dosing Weight 95.455, kg, PRN Pain Score 4-6, Start date: 10/13/17 4:57:00 SALVAGE ENGINEER, Duration: 30 day, Stop date: 4:56:00 SALVAGE ENGINEER Notes: (Same as: Roxicodone) Start Date: 10/13/17 Stop Date: 10/13/17 Status: Discontinued oxyCODONE 5 mg immediate release 10 mg, 2 tab, Route: PO, Drug form: TAB, Q4H, Dosing Weight 95.455, kg, PRN Pain Score 7-10, Start date: 10/13/17 4:57:00 SALVAGE ENGINEER, Duration: 30 day, Stop date: 10/29 03/15 4:56:00 SALVAGE ENGINEER Notes: (Same as: Roxicodone) Start Date: 10/13/17 Stop Date: 10/16/17 Status: Discontinued oxyCODONE 5 mg immediate release 5 mg, 1 tab, Route: PO, Drug form: TAB, Q6H, Dosing Weight 95.455, kg, PRN Pain Score 7-10, Start date: 10/13/17 2:54:00 SALVAGE ENGINEER, Duration: 30 day, Stop date: 11/12 2:53:00 SALVAGE ENGINEER Notes: (Same as: Roxicodone) Start Date: 10/13/17 Stop Date: 10/13/17 Status: Discontinued phenylephrine (ANES) Route: IV, Drug form: INJ, ONCE, Stop date: 10/13/17 11:14:00 SALVAGE ENGINEER Start Date: 10/13/17 Stop Date: 10/13/17 Status: Completed PlasmaLyte A PH-7.4 1,000 mL 1,000 mL, Rate: 100 ml/hr, Infuse over: 10 hr, Route: IV, Dosing Weight 95.455 k g, Total Volume: 1,000, Start date: 10/13/17 6:33:00 SALVAGE ENGINEER, Duration: 30 day, Stop date: 11/12/17 6:32:00 SALVAGE ENGINEER, 2.19, m2 Notes: (Same as: Isolyte S PH 7.4) Start Date: 10/13/17 Stop Date: 10/16/17 Status: Discontinued pregabalin 100 mg, 1 cap, Route: PO, Drug form: CAP, Q8H, Dosing Weight 95.455, kg, Priorit y: NOW, Start date: 10/13/17 2:54:00 SALVAGE ENGINEER, Duration: 48 hr, Stop date: 10/15/17 0 :00:00 SALVAGE ENGINEER Notes: (Same as: Lyrica) Start Date: 10/13/17 Stop Date: 10/13/17 Status: Discontinued propofol (ANES) Route: IV, Drug form: INJ, ONCE, Stop date: 10/13/17 11:14:00 SALVAGE ENGINEER Start Date: 10/13/17 Stop Date: 10/13/17 Status: Completed remove patch Route: TOP, Daily, Drug form: ERFILM, Start date: 10/13/17 15:00:00 SALVAGE ENGINEER, Duratio n: 30 day, Stop date: 11/11/17 15:00:00 SALVAGE ENGINEER Notes: Remove patch 12 hours after application each day. Start Date: 10/13/17 Stop Date: 10/16/17 Status: Discontinued Robaxin 750 mg, 1 tab, Route: PO, Drug form: TAB, Q6H-02, Dosing Weight 95.455, kg, Star t date: 10/14/17 20:00:00 SALVAGE ENGINEER, Duration: 30 day, Stop date: 11/13/17 14:00:00 CS T Notes: (Same as:Robaxin) Start Date: 10/14/17 Stop Date: 10/16/17 Status: Discontinued rocuronium (ANES) Route: IV, Drug form: INJ, ONCE, Stop date: 10/13/17 11:14:00 SALVAGE ENGINEER Start Date: 10/13/17 Stop Date: 10/13/17 Status: Completed senna 17.2 mg, 2 tab, Route: PO, Drug Form: TAB, Dosing Weight 95.455, kg, Bedtime, St art date: 10/13/17 21:00:00 SALVAGE ENGINEER, Duration: 30 day, Stop date: 11/11/17 21:00:00 SALVAGE ENGINEER Notes: (Same as: Ada) Start Date: 10/13/17 Stop Date: 10/16/17 Status: Discontinued senna 17.2 mg, 2 tab, Route: PO, Drug Form: TAB, Dosing Weight 95.455, kg, Bedtime, St art date: 10/13/17 21:00:00 SALVAGE ENGINEER, Duration: 30 day, Stop date: 11/11/17 21:00:00 SALVAGE ENGINEER Notes: (Same as: Ada) Start Date: 10/13/17 Stop Date: 10/13/17 Status: Canceled tramadol 50 mg, 1 tab, Route: PO, Drug form: TAB, Q6H, Dosing Weight 95.455, kg, Priority : NOW, Start date: 10/13/17 2:54:00 SALVAGE ENGINEER, Duration: 30 day, Stop date: 11/12/17 0 :00:00 SALVAGE ENGINEER Notes: Not to exceed 400mg/day. (Same As: Ultra) Start Date: 10/13/17 Stop Date: 10/13/17 Status: Discontinued Visipaque 320mg/ml 100 mL, Route: IVP, Drug Form: SOLN, Dosing Weight 95.455, kg, ONCALL, STAT, Sta rt date: 10/13/17 0:54:00 SALVAGE ENGINEER, Duration: 1 doses or times, Dose=2.2ml/kg, Max d [id number] -- "To be infused by Radiology Staff ONLY" Start Date: 10/13/17 Stop Date: 10/13/17 Status: Completed Zofran 4 mg, 2 mL, Route: IVP, Drug form: INJ, ONCE, Dosing Weight 95.455, kg, Priority : STAT, Start date: 10/12/17 23:55:00 SALVAGE ENGINEER, Stop date: 10/12/17 23:55:00 SALVAGE ENGINEER Notes: (Same as: Kitty) MEDICATION WASTE Product Size: 4 mgProduct Was yelitza: ___ mg Start Date: 10/12/17 Stop Date: 10/13/17 Status: Completed zolpidem 5 mg oral tablet 5 mg=1 tab, PO, Bedtime, 0 Refill(s) Start Date: 10/13/17 Status: Ordered Results BLOOD BANK RESULTS 1 2 3 Most recent to oldest [Reference Range]: O POS *Unknown* (10/13/17 12:26 AM) ABO/Rh Negative (10/13/17 12:26 AM) Antibody Scrn ELECTROLYTES 1 2 3 Most recent to oldest [Reference Range]: 132 mEq/L *LOW* (10/14/17 6:31 AM) 136 mEq/L (10/13/17 5:18 AM) 135 mEq/L (10/13/17 4:41 AM) Sodium Lvl [135-145 mEq/L] 4.6 mEq/L 1 (10/14/17 6:31 AM) 5.2 mEq/L *HI* (10/13/17 5:18 AM) 6.5 mEq/L 2 *CRIT* (10/13/17 4:41 AM) Potassium Lvl [3.5-5.1 mEq/L] 100 mEq/L (10/14/17 6:31 AM) 102 mEq/L (10/13/17 5:18 AM) 101 mEq/L (10/13/17 4:41 AM) Chloride Lvl [95-109 mEq/L] 22 mEq/L *LOW* (10/14/17 6:31 AM) 25 mEq/L (10/13/17 5:18 AM) 25 mEq/L (10/13/17 4:41 AM) CO2 [24-32 mEq/L] 14.6 mEq/L (10/14/17 6:31 AM) 14.2 mEq/L (10/13/17 5:18 AM) 15.5 mEq/L (10/13/17 4:41 AM) AGAP [10.0-20.0 mEq/L] 1Result Comment: Moderately hemolyzed 2Result Comment: moderate hemolysis, Critical Result(s) called to Christie Licea at 10/13/2017 05:04 [address] stp. Read back OK. CHEM PANEL 1 2 3 Most recent to oldest [Reference Range]: 1.62 mg/dL *HI* (10/14/17 6:31 AM) 1.41 mg/dL *HI* (10/13/17 5:18 AM) 1.39 mg/dL (10/13/17 4:41 AM) Creatinine Lvl [0.50-1.40 mg/dL] 47 mL/min/1.73m2 1 *NA* (10/14/17 6:31 AM) 55 mL/min/1.73m2 2 *NA* (10/13/17 5:18 AM) 56 mL/min/1.73m2 3 *NA* (10/13/17 4:41 AM) eGFR 31 mg/dL *HI* (10/14/17 6:31 AM) 28 mg/dL *HI* (10/13/17 5:18 AM) 28 mg/dL *HI* (10/13/17 4:41 AM) BUN [7-22 mg/dL] 98 mg/dL (10/14/17 6:31 AM) 139 mg/dL *HI* (10/13/17 5:18 AM) 145 mg/dL *HI* (10/13/17 4:41 AM) Glucose Lvl [70-99 mg/dL] 7.2 g/dL (10/13/17 4:41 AM) Total Protein [6.4-8.4 g/dL] 3.6 g/dL (10/13/17 4:41 AM) Albumin Lvl [3.5-5.0 g/dL] 3.6 g/dL (10/13/17 4:41 AM) Globulin [2.7-4.2 g/dL] 1.0 (10/13/17 4:41 AM) A/G Ratio [0.7-1.6] 7.8 mg/dL *LOW* (10/14/17 6:31 AM) 8.1 mg/dL *LOW* (10/13/17 5:18 AM) 8.5 mg/dL (10/13/17 4:41 AM) Calcium Lvl [8.5-10.5 mg/dL] 65 unit/L (10/13/17 4:41 AM) ALT [0-65 unit/L] 76 unit/L *HI* (10/13/17 4:41 AM) AST [0-37 unit/L] 45 unit/L (10/13/17 4:41 AM) Alk Phos [39-136 unit/L] 0.7 mg/dL (10/13/17 4:41 AM) Bili Total [0.2-1.3 mg/dL] <0.1 mg/dL (10/13/17 4:41 AM) Bili Direct [0.0-0.3 mg/dL] UNABLE TO CALCULATE *NA* (10/13/17 4:41 AM) Bili Indirect [0.0-1.0] 1Result Comment: The eGFR is calculated using the CKD-EPI formula. In most young, healthy individuals the eGFR will be >90 mL/min/1.73m2. The eGFR declines with age. An eGFR of 60-89 may be normal in some populations, particularly the elderly, for whom the CKD-EPI formula has not been extensively validated. Use of the eGFR is not recommended in the following populations: Individuals with unstable creatinine concentrations, including patients and those with serious co-morbid conditions. Patients with extremes in muscle mass or diet. The data above are obtained from the National Kidney Disease Education Program ( NKDEP) which additionally recommends that when the eGFR is used in patients with extremes of body mass index for purposes of drug dosing, the eGFR should be mul tiplied by the estimated BMI. 2Result Comment: The eGFR is calculated using the CKD-EPI formula. In most young, healthy individuals the eGFR will be >90 mL/min/1.73m2. The eGFR declines with age. An eGFR of 60-89 may be normal in some populations, particularly the elderly, for whom the CKD-EPI formula has not been extensively validated. Use of the eGFR is not recommended in the following populations: Individuals with unstable creatinine concentrations, including patients and those with serious co-morbid conditions. Patients with extremes in muscle mass or diet. The data above are obtained from the National Kidney Disease Education Program ( NKDEP) which additionally recommends that when the eGFR is used in patients with extremes of body mass index for purposes of drug dosing, the eGFR should be mul tiplied by the estimated BMI. 3Result Comment: The eGFR is calculated using the CKD-EPI formula. In most young, healthy individuals the eGFR will be >90 mL/min/1.73m2. The eGFR declines with age. An eGFR of 60-89 may be normal in some populations, particularly the elderly, for whom the CKD-EPI formula has not been extensively validated. Use of the eGFR is not recommended in the following populations: Individuals with unstable creatinine concentrations, including patients and those with serious co-morbid conditions. Patients with extremes in muscle mass or diet. The data above are obtained from the National Kidney Disease Education Program ( NKDEP) which additionally recommends that when the eGFR is used in patients with extremes of body mass index for purposes of drug dosing, the eGFR should be mul tiplied by the estimated BMI. URINE AND STOOL 1 2 3 Most recent to oldest [Reference Range]: Slight Cloudy (10/13/17 4:41 AM) UA Turbidity [Clear] Yellow *NA* (10/13/17 4:41 AM) UA Color [Yellow] 5.5 (10/13/17 4:41 AM) UA pH [5.0-8.0] 1.015 (10/13/17 4:41 AM) UA Spec Grav [<=1.030] Negative (10/13/17 4:41 AM) UA Glucose [Negative] Large *ABN* (10/13/17 4:41 AM) UA Blood [Negative] Negative *NA* (10/13/17 4:41 AM) UA Ketones [Negative] 30 mg/dL *ABN* (10/13/17 4:41 AM) UA Protein [Negative mg/dL] 0.2 EU/dL (10/13/17 4:41 AM) UA Urobilinogen [0.1-1.0 EU/dL] Negative *NA* (10/13/17 4:41 AM) UA Bili [Negative] Negative (10/13/17 4:41 AM) UA Leuk Est [Negative] Negative (10/13/17 4:41 AM) UA Nitrite [Negative] 0-2 /HPF (10/13/17 4:41 AM) UA WBC [None Seen /HPF] 6-10 /HPF *ABN* (10/13/17 4:41 AM) UA RBC [0-2 /HPF] Few /HPF (10/13/17 4:41 AM) UA Bacteria [None Seen /HPF] Rare /LPF (10/13/17 4:41 AM) UA Sq Epi [Few /LPF] HEMATOLOGY 1 2 3 Most recent to oldest [Reference Range]: 8.3 K/CMM (10/15/17 6:41 AM) 8.8 K/CMM (10/14/17 9:26 AM) 13.1 K/CMM *HI* (10/13/17 12:32 AM) WBC [3.7-10.4 K/CMM] 3.43 M/CMM *LOW* (10/15/17 6:41 AM) 3.50 M/CMM *LOW* (10/14/17 9:26 AM) 4.43 M/CMM *LOW* (10/13/17 12:32 AM) RBC [4.70-6.10 M/CMM] 9.9 g/dL *LOW* (10/15/17 6:41 AM) 10.0 g/dL *LOW* (10/14/17 9:26 AM) 12.5 g/dL *LOW* (10/13/17 12:32 AM) Hgb [14.0-18.0 g/dL] 28.0 % *LOW* (10/15/17 6:41 AM) 28.4 % *LOW* (10/14/17 9:26 AM) 36.2 % *LOW* (10/13/17 12:32 AM) Hct [42.0-54.0 %] 81.5 fL (10/15/17 6:41 AM) 81.1 fL (10/14/17 9:26 AM) 81.7 fL (10/13/17 12:32 AM) MCV [80.0-94.0 fL] 28.7 pg (10/15/17 6:41 AM) 28.7 pg (10/14/17 9:26 AM) 28.2 pg (10/13/17 12:32 AM) MCH [27.0-31.0 pg] 35.2 g/dL (10/15/17 6:41 AM) 35.4 g/dL (10/14/17 9:26 AM) 34.5 g/dL (10/13/17 12:32 AM) MCHC [32.0-36.0 g/dL] 14.0 % (10/15/17 6:41 AM) 13.4 % (10/14/17 9:26 AM) 13.3 % (10/13/17 12:32 AM) RDW [11.5-14.5 %] 157 K/CMM (10/15/17 6:41 AM) 167 K/CMM (10/14/17 9:26 AM) 159 K/CMM (10/13/17 12:32 AM) Platelet [133-450 K/CMM] 8.6 fL (10/15/17 6:41 AM) 8.7 fL (10/14/17 9:26 AM) 9.2 fL (10/13/17 12:32 AM) MPV [7.4-10.4 fL] 72.4 % (10/15/17 6:41 AM) 86.8 % *HI* (10/13/17 12:32 AM) Segs [45.0-75.0 %] 18.1 % *LOW* (10/15/17 6:41 AM) 8.1 % *LOW* (10/13/17 12:32 AM) Lymphocytes [20.0-40.0 %] 7.2 % (10/15/17 6:41 AM) 4.5 % (10/13/17 12:32 AM) Monocytes [2.0-12.0 %] 1.8 % (10/15/17 6:41 AM) Eosinophils [0.0-4.0 %] 0.5 % (10/15/17 6:41 AM) 0.6 % (10/13/17 12:32 AM) Basophils [0.0-1.0 %] 6.0 K/CMM (10/15/17 6:41 AM) 11.4 K/CMM *HI* (10/13/17 12:32 AM) Segs-Bands # [1.5-8.1 K/CMM] 1.5 K/CMM (10/15/17 6:41 AM) 1.1 K/CMM (10/13/17 12:32 AM) Lymphocytes # [1.0-5.5 K/CMM] 0.6 K/CMM (10/15/17 6:41 AM) 0.6 K/CMM (10/13/17 12:32 AM) Monocytes # [0.0-0.8 K/CMM] 0.1 K/CMM (10/15/17 6:41 AM) Eosinophils # [0.0-0.5 K/CMM] 0.1 K/CMM (10/13/17 12:32 AM) Basophils # [0.0-0.2 K/CMM] 13.5 seconds (10/13/17 12:32 AM) PT [12.0-14.7 seconds] 1.03 (10/13/17 12:32 AM) INR [0.85-1.17] 27.4 seconds (10/13/17 12:32 AM) PTT [22.9-35.8 seconds] 113 seconds (10/13/17 12:32 AM) ACT (TEG) Rapid [86-118 seconds] 0.5 minutes *NA* (10/13/17 12:32 AM) Split Point Rapid 0.7 minutes (10/13/17 12:32 AM) R-time Rapid [0.4-0.7 minutes] 1.8 minutes (10/13/17 12:32 AM) K-time Rapid [0.6-2.3 minutes] 71 degrees (10/13/17 12:32 AM) Angle Rapid [64-80 degrees] 58 mm (10/13/17 12:32 AM) Max Amplitude Rapid [52-71 mm] 7.0 K d/sc (10/13/17 12:32 AM) G-value Rapid [5.0-11.6 K d/sc] 0.0 % (10/13/17 12:32 AM) Estimated % Lysis Rapid [0.0-7.5 %] Immunizations No data available for this section Procedures Procedure Date Related Diagnosis Body Site Repair of rotator cuff of shoulder 10/29/11 Social History Social History Type Response Smoking Status Former smoker; Type: Cigarettes; Exposure to Tobacco Smoke None; Cigarette Smoking Last 365 Days No; Reg Smoking Cessation Counseling No Assessment and Plan Extracted from: Title: daily ortho progress note Author: Rossana Tenorio Date: 10/16/17 Progress Daily [facility] Completed: Sep, 11:21 by Rossana Tenorio RM: [id number], [id number] (: 1960) M Attending: Reyes Thompson MDPhone: Service: Orthopedic Reason for Admission: PELVIC FX Working DRG: Fractures of hip & pelvis w/o RETIREMENT Code status: Full Code [Ordered]Current diet: Isolation: None Documented Allergies: NKDA Ready for Discharge (Yes/No)? Gruber still necessary (Yes/No): Line still necessary (Yes/No): (no lab data in past 24 hours) VitalsTmp(F)[id number] 10/16 07:1598.872310/009892--- 10/16 05:1698.004407/541888 2.0L/m 10/16 00:2197.737750/550175 2.0L/m 10/15 20:31110.521988/878295 2.0L/m 10/15 16:2899.037372/201929--- 24 Hr Tmax: 100.0F (37.78c) at 10/15 20:40Vital Signs are the last 5 in the past 48 hours. DateWt(kg)Wt(lb)Ht(cm)Ht(in)Method 10/13 95.45 210.45319.80 70.00Estimated 10/12 (initial) 95.45 210.00Estimated 77.80 70.00Stated I&ORecordInOutBal 09/1924hr Tot 0 0 0 09/1824hr Tot 920 640 280 Medications (20) Active Scheduled Meds (11): 10/13/17 acetaminophen 1,000 mg PO Q6Hnow 10/13/17 cetirizine 5 mg PO Daily 10/13/17 docusate 100 mg PO BID 10/13/17 enoxaparin (Lovenox) 30 mg SUB-Q Q12H 10/13/17 gabapentin 300 mg PO Q8Hnow 10/13/17 hydrochlorothiazide (hydrochlorothiazide 25 mg oral tablet) 25 mg PO Daily 10/13/17 lisinopril 20 mg PO Daily 10/14/17 methocarbamol (Robaxin) 750 mg PO Q6H-02 10/13/17 remove patch TOP Daily 10/13/17 rosuvastatin (Crestor) 10 mg PO Bedtime 10/13/17 senna 17.2 mg PO Bedtime Unscheduled Meds: None PRN Meds (7): 10/13/17 Al hydroxide/Mg hydroxide/simethicone (Al hydroxide/Mg hydroxide/simethicone 200 mg-200 mg-20 mg/5 mL oral suspension) 30 mL PO Q4H 10/13/17 bisacodyl 10 mg WI Daily 10/13/17 diphenhydrAMINE 25 mg PO Bedtime 10/13/17 diphenhydrAMINE 12.5 mg PO Q6H 10/13/17 hydromorphone 0.3 mg IVP Q4H 10/13/17 ondansetron 4 mg IVP Q8H 10/13/17 oxyCODONE (oxyCODONE 5 mg immediate release) 10 mg PO Q4H One Time Meds: None Continuous Infusions (2): 10/13/17 Electrolyte Solution 1,000 mL (PlasmaLyte A PH-7.4 1,000 mL) 1,000 mL 100 ml/hr 10/13/17 Lactated Ringers Injection IV 1,000 mL (Lactated Ringers IV 1,000 mL) 1,000 mL 100 ml/hr Diagnosis: 1. left sacral fracture 2. Bilateral SI WI fractures surgery: 1. 10/13/17: EUA. CRPS left sacrum Exam: BLE: moves toes, foot warm, cap refill brisk, STLT intact EHL/FHL 5/5 Plan Pain: controlled Weight bearing status:NWBLLE, Abx:completed per scip protocol DVT: lovenox Dressings: can be changed POD #7 Patient education: WB limitations, narcotic risks and benefits use/abuse and addiction Discharge Dispo:d/c today once cleared by PT Extracted from: Title: Ortho H&P Author: Balwinder Murillo Date: 10/13/17 ORS Trauma Consult History and Physical Reason for Consult: Pelvic fxs Source of Consult: ED Consulting Physician: Dr. [facility] Attending: Dr. Liam Thompson Date of Service: 10/13/2017 CC: pain HPI: The pt is a 57 yo male s/p fall from 6ft ladder sustaining multiple pelvic fractures. Pain is worse with movement, relieved by laying still on his side. Denies numbness/tingling to extremities. Denies pain to other extremities. Patient is NPO PMH: htn PSH: rotator cuff repair Medications: see med rec Allergies: nkda Review of Systems: Gen: Denies fever/chills/night sweats HEENT: Denies vision change, hearing changes CV: Denies CP, Palpitations Resp: Denies SOB, wheezing, cough GI: Denies Abd pain, N/V/D/Constipation. Denies incontinence. : Denies urinary retention/urgency Back/Spine: Denies pain. Neuro: Denies headaches, weakness/numbness in extremities. Integumentary: Denies open wounds, rashes, morris. Endocrine: Denies recent weight changes, Psych: Denies depression, anxiety, suicidal/homicidal ideation. Musculoskeletal: Denies all but HPI. All other systems negative except HPI. Social History: Employment/Lifestyle: Tobacco: denies EtOH: occasional Illicit drugs: denies Family History: noncontributory VitalsTmp(F)Tmp(C)[id number] 10/13 06:46 158/5290472 10/13 05:2898.637.27yxrp395/[id number]------ 10/13 03:18 137/[id number]------ 10/13 02:00 116/[id number]------ 10/13 01:00 119/[id number]------ 24 Hr Tmax: 99.5F (37.50c) at 10/12 23:07Vital Signs are the last 5 in the past 48 hours. 24 Hr Tmin: 98.6F (37.00c) at 10/13 05:28Weights are the last 5 in 60 days, plus initial. DateWt(kg)Wt(lb)Ht(cm)Ht(in)MethodBMIBSA 10/13 95.45 210.97852.80 70.00Estimated 30.22.17 10/12 (initial) 95.45 210.00Estimated 30.22.17 77.80 70.00Stated (no point of care glucose results charted in last 24 hours) Most Recent Scores: 10/13/17Pain Intensity NRS (0-10)7 10/13/17[place] Fall Score11 10/13/17[place] Coma Score15 Lines, Tubes, and Drains: 10/13/2017 03:45 Indwelling Urinary Catheter: Urethral 16 Thai Indwelling/Continuous 10/12/2017 23:07 Peripheral Lines: Antecubital Left 20 gauge Over the needle catheter 10/12/2017 23:07 Peripheral Lines: Forearm Left 18 gauge Over the needle catheter Surgical Procedures: (no date) [id number](primary surgeon unspecified) (no date)EXAMINATION UNDER ANESTHESIA, CLOSED REDUCTION PERCUTANEOUS SCREWS LEFT SACRUM PELVIS [id number](primary surgeon unspecified) (no date) [id number](primary surgeon unspecified) Exam: Gen: A/Ox3, GCS 15 Resp: Unlabored, ABRAN CV: Distal pulses palpated, RRR Abd: NT, ND Pelvis: Tender to lateral compression stress w/ gross collapse, no open wounds. Spine: Palpation: No tenderness to palpation, no gaps or steps, no ecchymosis RUE: Inspection: nttp, no wounds, stable elbow, full AROM Sensation: silt m/u/r Motor: 5/5 strength Vascular: 2+ radial LUE: Inspection: nttp, no wounds, stable elbow, full AROM Sensation: silt m/u/r Motor: 5/5 strength Vascular: 2+ radial RLE: Inspection: nttp, no wounds, stable knee, limited ROM 2/2 pain Sensation: silt sp/dp/t/monae/saph Motor: +ehl/fhl/ta/gs Vascular: 2+ pt/dp LLE: Inspection: nttp, no wounds, stable knee, limited ROM 2/2 pain Sensation: silt sp/dp/t/monae/saph Motor: +ehl/fhl/ta/gs Vascular: 2+ pt/dp Imaging: IMPRESSION: 1. Lateral compression fracture of the pelvis with comminuted fractures of the bilateral superior and inferior pubic rami. The left superior pubic ramus fracture extends into pubic body and into the pubic root through the anterior wall of the acetabulum into the hip joint. The right superior pubic ramus fracture extends into the pubic root and into the quadrilateral plate of the acetabulum. 2. Moderately comminuted zone 1 left sacral alae fracture with extension into the left SI joint and associated moderately comminuted fracture of the left posterior iliac wing with intra-articular extension into the left SI joint. 3. Minimally comminuted fracture of the right ischial tuberosity. 4. Small volume hemorrhage in the anterior pelvis without evidence of active extravasation. No definite evidence of injury to the bladder is noted with contrast distending the urinary bladder. 5. Contracted appearance of the gallbladder with layering densities that may represent sludge or early vicarious excretion of contrast. 6. Moderate prostatomegaly with heterogenous appearance of the prostate which may represent underlying changes of prostatitis. Assessment and Plan: Patient is a 57 male s/p fall from ladder sustaining L sacrum fx, and bilateral S/I pubic rami fxs - Weight bearing status: NWB BLE - Pain control multimodal - Dressings: keep c/d/i ortho will do first change - DVT PPx: TEDS/SCD/Lovenox - Bowel Regimen - PT: as appropriate - Admit to: ORTHO - Pending ORS surgeries: below - Dispo: -TO OR 10/13 for EUA Pelvis, possible CRPS Sacrum/Pelvis -npo, ivf -consent signed, and in chart Balwinder Murillo M.D. Orthopedic Surgery Resident PGY-2 Pager [phone]
--- OUTSIDE RECORDS SUMMARY | 2018-10-18 08:06 | XMS REPORT | Continuity of Care Document ---
Author Author [facility] Interface Address Unknown Phone Unavailable Problems Problem Status Onset Date Classification Date Reported Comments Source PELVIC FX Active 10/12/2017 [facility] FALL Active 10/12/2017 [facility] Benign hypertension Resolved Problem 10/19/2017 [facility] FRACTURE OF UNSP PARTS OF LUMBOSACRAL SP Active [facility] Medications Medication Details Route Status Patient Instructions Ordering Provider Order Date Source 0.4 ML Enoxaparin sodium 100 MG/ML Prefilled Syringe [Lovenox] 40 mg, SUB-Q, Daily, X 21 day, # 21 syr, 0 Refill(s), Pharmacy: [facility] [id number] Active 10/16/2017 [facility] gabapentin 300 MG Oral Capsule 300 mg=1 cap, PO, Q8Hnow, # 60 cap, 0 Refill(s), Pharmacy: [facility] [id number] Active 10/16/2017 [facility] methocarbamol 750 mg oral tablet 750 mg=1 tab, PO, Q6H- 02, # 30 tab, 0 Refill(s), Pharmacy: [facility] [id number] Inactive 10/16/2017 [facility] bisacodyl 10 mg rectal suppository 10 mg=1 supp, CT, Daily, PRN Constipation, # 5 supp, 0 Refill(s), Pharmacy: [facility] [id number] Inactive 10/16/2017 [facility] Robaxin 750 mg, 1 tab, Route: PO, Drug form: TAB, Q6H-02, Dosing Weight 95.455, kg, Start date: 10/14/17 20:00:00 TECHNICAL ACCOUNT EXECUTIVE, Duration: 30 day, Stop date: 11/13/17 14:00:00 CSTNotes: (Same as:Robaxin) No Longer Active 10/15/2017 [facility] sennosides, ASSISTED 17.2 mg, 2 tab, Route: PO, Drug Form: TAB, Dosing Weight 95.455, kg, Bedtime, Start date: 10/13/17 21:00:00 TECHNICAL ACCOUNT EXECUTIVE, Duration: 30 day, Stop date: 11/11/17 21:00:00 CSTNotes: (Same as: Senokot) No Longer Active 10/14/2017 [facility] Crestor 10 mg, 1 tab, Route: PO, Drug form: TAB, Bedtime, Dosing Weight 95.455, kg, Start date: 10/13/17 21:00:00 TECHNICAL ACCOUNT EXECUTIVE, Duration: 30 day, Stop date: 11/11/17 21:00:00 CSTNotes: (Same As: Crestor) No Longer Active 10/14/2017 [facility] Ancef + sterile water 20 mL 2 gm, Route: IVPB, Q8H, Dosing Weight 95.455, kg, Start date: 10/13/17 18:00:00 TECHNICAL ACCOUNT EXECUTIVE, Duration: 1 day, Stop date: 10/14/17 10:00:00 TECHNICAL ACCOUNT EXECUTIVE, ABX Indication: Surgical ProphylaxisNotes: (Same As: Ancef, Kefzol) MEDICATION WASTE Product Size: 1000 mg Product Wasted: ___ mg No Longer Active 10/14/2017 [facility] remove patch Route: TOP, Daily, Drug form: ERFILM, Start date: 10/13/17 15:00:00 TECHNICAL ACCOUNT EXECUTIVE, Duration: 30 day, Stop date: 11/11/17 15:00:00 CSTNotes: Remove patch 12 hours after application each day. No Longer Active 10/13/2017 [facility] Lactated Ringers IV 1,000 mL 1,000 mL, Rate: 100 ml/hr, Infuse over: 10 hr, Route: IV, Dosing Weight 95.455 kg, Total Volume: 1,000, Start date: 10/13/17 13:48:00 TECHNICAL ACCOUNT EXECUTIVE, Duration: 30 day, Stop date: 11/12/17 13:47:00 TECHNICAL ACCOUNT EXECUTIVE, 2.19, m2 No Longer Active 10/13/2017 [facility] hydromorphone (ANES) Route: IV, Drug Form: INJ, ONCE, Stop date: 10/13/17 13:33:00 TECHNICAL ACCOUNT EXECUTIVE Inactive 10/13/2017 [facility] neostigmine (ANES) Route: IV, Drug form: INJ, ONCE, Stop date: 10/13/17 13:33:00 TECHNICAL ACCOUNT EXECUTIVE Inactive 10/13/2017 [facility] glycopyrrolate (ANES) Route: IV, Drug form: INJ, ONCE, Stop date: 10/13/17 13:33:00 TECHNICAL ACCOUNT EXECUTIVE Inactive 10/13/2017 [facility] ondansetron (ANES) Route: IV, Drug form: INJ, ONCE, Stop date: 10/13/17 13:33:00 TECHNICAL ACCOUNT EXECUTIVE Inactive 10/13/2017 [facility] Furosemide 20 MG Oral Tablet 20 mg=1 tab, PO, Daily, 0 Refill(s) Active 10/13/2017 [facility] zolpidem 5 mg oral tablet 5 mg=1 tab, PO, Bedtime, 0 Refill(s) Active 10/13/2017 [facility] dexamethasone (ANES) Route: IV, Drug form: INJ, ONCE, Stop date: 10/13/17 11:29:00 TECHNICAL ACCOUNT EXECUTIVE Inactive 10/13/2017 [facility] ePHEDrine (ANES) Route: IV, Drug form: INJ, ONCE, Stop date: 10/13/17 11:29:00 TECHNICAL ACCOUNT EXECUTIVE Inactive 10/13/2017 [facility] fentaNYL (ANES) Route: IV, Drug form: INJ, ONCE, Stop date: 10/13/17 11:24:00 TECHNICAL ACCOUNT EXECUTIVE Inactive 10/13/2017 [facility] ceFAZolin (ANES) Route: IV, Drug form: INJ, ONCE, Stop date: 10/13/17 11:14:00 TECHNICAL ACCOUNT EXECUTIVE Inactive 10/13/2017 [facility] rocuronium (ANES) Route: IV, Drug form: INJ, ONCE, Stop date: 10/13/17 11:14:00 TECHNICAL ACCOUNT EXECUTIVE Inactive 10/13/2017 [facility] phenylephrine (ANES) Route: IV, Drug form: INJ, ONCE, Stop date: 10/13/17 11:14:00 TECHNICAL ACCOUNT EXECUTIVE Inactive 10/13/2017 [facility] midazolam (ANES) Route: IV, Drug form: SOLN, ONCE, Stop date: 10/13/17 11:14:00 TECHNICAL ACCOUNT EXECUTIVE Inactive 10/13/2017 [facility] lidocaine (ANES) Route: IV, Drug form: INJ, ONCE, Stop date: 10/13/17 11:14:00 TECHNICAL ACCOUNT EXECUTIVE Inactive 10/13/2017 [facility] propofol (ANES) Route: IV, Drug form: INJ, ONCE, Stop date: 10/13/17 11:14:00 TECHNICAL ACCOUNT EXECUTIVE Inactive 10/13/2017 [facility] acetaminophen (ANES) 10 mg Route: IV, Drug form: INJ, Start date: 10/13/17 11:00:00 TECHNICAL ACCOUNT EXECUTIVE, Stop date: 10/13/17 12:00:00 TECHNICAL ACCOUNT EXECUTIVE Inactive 10/13/2017 [facility] Lovenox 30 mg, 0.3 mL, Route: SUB-Q, Drug form: INJ, Q12H, Dosing Weight 95.455, kg, Start date: 10/13/17 11:00:00 TECHNICAL ACCOUNT EXECUTIVE, Stop date: 11/12/17 4:00:00 CSTNotes: (Same as: Lovenox) No Longer Active 10/13/2017 [facility] Lactated Ringers Injection IV (ANES) 1000 mL Route: IV, Total Volume: 1,000, Start date: 10/13/17 10:18:00 TECHNICAL ACCOUNT EXECUTIVE, Stop date: 10/13/17 11:18:00 TECHNICAL ACCOUNT EXECUTIVE Inactive 10/13/2017 [facility] Docusate 100 mg, 1 cap, Route: PO, Drug form: CAP, BID, Dosing Weight 95.455, kg, Start date: 10/13/17 9:00:00 TECHNICAL ACCOUNT EXECUTIVE, Duration: 30 day, Stop date: 11/11/17 17:00:00 CSTNotes: (Same as: Colace) (Do Not Crush) No Longer Active 10/13/2017 [facility] lisinopril 20 mg, 1 tab, Route: PO, Drug form: TAB, Daily, Start date: 10/13/17 9:00:00 TECHNICAL ACCOUNT EXECUTIVE, Duration: 30 day, Stop date: 11/11/17 9:00:00 CSTNotes: (Same as: Prinivil, Zestril) No Longer Active 10/13/2017 [facility] hydrochlorothiazide 25 mg oral tablet 25 mg, 1 tab, Route: PO, Drug form: TAB, Daily, Start date: 10/13/17 9:00:00 TECHNICAL ACCOUNT EXECUTIVE, Duration: 30 day, Stop date: 11/11/17 9:00:00 CSTNotes: (Same as: Hydrodiuril) With food. No Longer Active 10/13/2017 [facility] Cetirizine 5 mg, 1 tab, Route: PO, Drug form: TAB, Daily, Dosing Weight 95.455, kg, Start date: 10/13/17 9:00:00 TECHNICAL ACCOUNT EXECUTIVE, Duration: 30 day, Stop date: 11/11/17 9:00:00 CSTNotes: (Same As: Zyrtec) No Longer Active 10/13/2017 [facility] Hydrochlorothiazide 25 MG / Lisinopril 20 MG Oral Tablet 1 tab, Route: PO, Dosing Weight 95.455, kg, Daily, Start date: 10/13/17 9:00:00 TECHNICAL ACCOUNT EXECUTIVE, Duration: 30 day, Stop date: 11/11/17 9:00:00 TECHNICAL ACCOUNT EXECUTIVE Inactive 10/13/2017 [facility] levocetirizine 5 mg oral tablet 5 mg=1 tab, PO, QPM, # 30 tab, 1 Refill(s) Active 10/13/2017 [facility] Rosuvastatin calcium 10 MG Oral Tablet [Crestor] 10 mg=1 tab, PO, Bedtime, 0 Refill(s) Active 10/13/2017 [facility] Hydrochlorothiazide 25 MG / Lisinopril 20 MG Oral Tablet 1.5 tab, PO, Daily, # 30 tab, 0 Refill(s) Active 10/13/2017 [facility] PlasmaLyte A PH-7.4 1,000 mL 1,000 mL, Rate: 100 ml/hr, Infuse over: 10 hr, Route: IV, Dosing Weight 95.455 kg, Total Volume: 1,000, Start date: 10/13/17 6:33:00 TECHNICAL ACCOUNT EXECUTIVE, Duration: 30 day, Stop date: 11/12/17 6:32:00 TECHNICAL ACCOUNT EXECUTIVE, 2.19, [id number]: (Same as: Isolyte S PH 7.4) No Longer Active 10/13/2017 [facility] Methocarbamol 750 mg, 1 tab, Route: PO, Drug form: TAB, Q6H, Dosing Weight 95.455, kg, Start date: 10/13/17 5:00:00 TECHNICAL ACCOUNT EXECUTIVE, Stop date: 11/11/17 22:00:00 CSTNotes: (Same as:Robaxin) No Longer Active 10/13/2017 [facility] Acetaminophen 1,000 mg, 2 tab, Route: PO, Drug form: TAB, Q6Hnow, Dosing Weight 95.455, kg, Start date: 10/13/17 5:00:00 TECHNICAL ACCOUNT EXECUTIVE, Duration: 30 day, Stop date: 11/12/17 3:00:00 CSTNotes: Max acetaminophen 4000 mg/day (4 gm/day). (Same as: Tylenol Extra Strength) No Longer Active 10/13/2017 [facility] gabapentin 300 mg, 1 cap, Route: PO, Drug form: CAP, Q8Hnow, Dosing Weight 95.455, kg, Start date: 10/13/17 5:00:00 TECHNICAL ACCOUNT EXECUTIVE, Duration: 30 day, Stop date: 11/11/17 22:00:00 CSTNotes: (Same as: Neurontin) No Longer Active 10/13/2017 [facility] Hydromorphone 0.3 mg, 0.15 mL, Route: IVP, Drug form: INJ, Q4H, Dosing Weight 95.455, kg, PRN Pain Score 7-10, Start date: 10/13/17 4:57:00 TECHNICAL ACCOUNT EXECUTIVE, Duration: 30 day, Stop date: 11/12/17 4:56:00 CSTNotes: Same as Dilaudid No Longer Active 10/13/2017 [facility] Bisacodyl 10 mg, 1 supp, Route: CT, Drug form: SUPP, Daily, Dosing Weight 95.455, kg, PRN Constipation, Start date: 10/13/17 4:57:00 TECHNICAL ACCOUNT EXECUTIVE, Duration: 30 day, Stop date: 11/12/17 4:56:00 CSTNotes: (Same As: Dulcolax, Bisco-Lax) No Longer Active 10/13/2017 [facility] Ondansetron 4 mg, 2 mL, Route: IVP, Drug form: INJ, Q8H, Dosing Weight 95.455, kg, PRN Nausea & Vomiting, Start date: 10/13/17 4:57:00 TECHNICAL ACCOUNT EXECUTIVE, Duration: 30 day, Stop date: 11/12/17 4:56:00 CSTNotes: (Same as: Zofran) MEDICATION WASTE Product Size: 4 mg Product Wasted: ___ mg No Longer Active 10/13/2017 [facility] Diphenhydramine 25 mg, 1 cap, Route: PO, Drug form: CAP, Bedtime, Dosing Weight 95.455, kg, PRN Insomnia, Start date: 10/13/17 4:57:00 TECHNICAL ACCOUNT EXECUTIVE, Duration: 30 day, Stop date: 11/12/17 4:56:00 CSTNotes: (Same as: Benadryl) No Longer Active 10/13/2017 [facility] Al hydroxide/Mg hydroxide/simethicone 200 mg-200 mg-20 mg/5 mL oral suspension 30 mL, Route: PO, Drug Form: SUSP, Dosing Weight 95.455, kg, Q4H, PRN Indigestion, Start date: 10/13/17 4:57:00 TECHNICAL ACCOUNT EXECUTIVE, Duration: 30 day, Stop date: 11/12/17 4:56:00 CSTNotes: (aluminum hydroxide-magnesium hyd- simethicone [id number]/5ml 30 ml ud LANDY) No Longer Active 10/13/2017 [facility] Oxycodone Hydrochloride 5 MG Oral Tablet 5 mg, 1 tab, Route: PO, Drug form: TAB, Q4H, Dosing Weight 95.455, kg, PRN Pain Score 4-6, Start date: 10/13/17 4:57:00 TECHNICAL ACCOUNT EXECUTIVE, Duration: 30 day, Stop date: 11/12/17 4:56:00 CSTNotes: (Same as: Roxicodone) Inactive 10/13/2017 [facility] Dilaudid 0.5 mg, 0.25 mL, Route: IVP, Drug form: INJ, ONCE, Dosing Weight 95.455, kg, Priority: STAT, Start date: 10/13/17 3:05:00 TECHNICAL ACCOUNT EXECUTIVE, Stop date: 10/13/17 3:05:00 CSTNotes: Same as Dilaudid Inactive 10/13/2017 [facility] Lidocaine Hydrochloride 0.05 MG/MG Transdermal Patch [Lidoderm] 1 patch, Route: TOP, Q24H, Drug form: FILM, Start date: 10/13/17 3:00:00 TECHNICAL ACCOUNT EXECUTIVE, Duration: 30 day, Stop date: 11/11/17 3:00:00 CSTNotes: Apply only once for up to 12 hours in a 24-hour period (12 hours on and 12 hours off). (Same as: Lidoderm) "Remove old patch before application of new patch" Inactive 10/13/2017 [facility] pregabalin 100 mg, 1 cap, Route: PO, Drug form: CAP, Q8H, Dosing Weight 95.455, kg, Priority: NOW, Start date: 10/13/17 2:54:00 TECHNICAL ACCOUNT EXECUTIVE, Duration: 48 hr, Stop date: 10/15/17 0:00:00 CSTNotes: (Same as: Lyrica) Inactive 10/13/2017 [facility] Tramadol 50 mg, 1 tab, Route: PO, Drug form: TAB, Q6H, Dosing Weight 95.455, kg, Priority: NOW, Start date: 10/13/17 2:54:00 TECHNICAL ACCOUNT EXECUTIVE, Duration: 30 day, Stop date: 11/12/17 0:00:00 CSTNotes: Not to exceed 400mg/day. (Same As: Ultram) Inactive 10/13/2017 [facility] Oxycodone Hydrochloride 5 MG Oral Tablet 5 mg, 1 tab, Route: PO, Drug form: TAB, Q6H, Dosing Weight 95.455, kg, PRN Pain Score 7-10, Start date: 10/13/17 2:54:00 TECHNICAL ACCOUNT EXECUTIVE, Duration: 30 day, Stop date: 11/12/17 2:53:00 CSTNotes: (Same as: Roxicodone) Inactive 10/13/2017 [facility] Acetaminophen 1,000 mg, 2 tab, Route: PO, Drug form: TAB, Q6H, Dosing Weight 95.455, kg, Priority: NOW, Start date: 10/13/17 2:54:00 TECHNICAL ACCOUNT EXECUTIVE, Duration: 30 day, Stop date: 11/12/17 0:00:00 CSTNotes: Max acetaminophen 4000 mg/day (4 gm/day). (Same as: Tylenol Extra Strength) Inactive 10/13/2017 [facility] celecoxib 200 mg, 1 cap, Route: PO, Drug form: CAP, Q12H, Dosing Weight 95.455, kg, Priority: NOW, Start date: 10/13/17 2:54:00 TECHNICAL ACCOUNT EXECUTIVE, Duration: 48 hr, Stop date: 10/14/17 21:00:00 CSTNotes: NSAID. Please check ind ication. Not for seizure. (Same As: CeleBREX) Inactive 10/13/2017 [facility] Isolyte S PH-7.4 (Bolus) IV 1,000 mL, 1000 ml/hr, Route: IV, Drug Form: SOLN, Dosing Weight 95.455, kg, ONCE, Start date: 10/13/17 2:51:00 TECHNICAL ACCOUNT EXECUTIVE, Stop date: 10/13/17 2:51:00 CSTNotes: (Same as: Isolyte S PH 7.4) Inactive 10/13/2017 [facility] iodixanol 100 mL, Route: IVP, Drug Form: SOLN, Dosing Weight 95.455, kg, ONCALL, STAT, Start date: 10/13/17 0:54:00 TECHNICAL ACCOUNT EXECUTIVE, Duration: 1 doses or times, Dose=2.2ml/kg, Max ihff=[id number] -- "To be infused by Radiology Staff ONLY" Inactive 10/13/2017 [facility] Zofran 4 mg, 2 mL, Route: IVP, Drug form: INJ, ONCE, Dosing Weight 95.455, kg, Priority: STAT, Start date: 10/12/17 23:55:00 TECHNICAL ACCOUNT EXECUTIVE, Stop date: 10/12/17 23:55:00 CSTNotes: (Same as: Zofran) MEDICATION WASTE Product Size: 4 mg Product Wasted: ___ mg No Longer Active 10/13/2017 [facility] Dilaudid 0.5 mg, 0.25 mL, Route: IV, Drug form: INJ, ONCE, Dosing Weight 95.455, kg, Start date: 10/12/17 23:55:00 TECHNICAL ACCOUNT EXECUTIVE, Stop date: 10/12/17 23:55:00 CSTNotes: Same as Dilaudid No Longer Active 10/13/2017 [facility] Allergies, Adverse Reactions, Alerts Substance Category Reaction Severity Reaction type Status Date Reported Comments Source Immunizations Immunization Date Given Site Status Last Updated Comments Source Results Order Name Results Value Reference Range Date Interpretation Comments Source HEMATOLOGY Monocytes # 0.6 K/CMM 0.0 - 0.8 10/15/2017 [facility] HEMATOLOGY Segs-Bands # 6.0 K/CMM 1.5 - 8.1 10/15/2017 [facility] HEMATOLOGY Basophils 0.5 % 0.0 - 1.0 10/15/2017 [facility] HEMATOLOGY Eosinophils 1.8 % 0.0 - 4.0 10/15/2017 [facility] HEMATOLOGY Lymphocytes # 1.5 K/CMM 1.0 - 5.5 10/15/2017 [facility] HEMATOLOGY Eosinophils # 0.1 K/CMM 0.0 - 0.5 10/15/2017 [facility] HEMATOLOGY Monocytes 7.2 % 2.0 - 12.0 10/15/2017 [facility] HEMATOLOGY Lymphocytes 18.1 % 20.0 - 40.0 10/15/2017 [facility] HEMATOLOGY Segs 72.4 % 45.0 - 75.0 10/15/2017 [facility] HEMATOLOGY WBC 8.3 K/CMM 3.7 - 10.4 10/15/2017 [facility] HEMATOLOGY RBC 3.43 M/CMM 4.70 - 6.10 10/15/2017 [facility] HEMATOLOGY Platelet 157 K/CMM 133 - 450 10/15/2017 [facility] HEMATOLOGY MPV 8.6 fL 7.4 - 10.4 10/15/2017 [facility] HEMATOLOGY MCH 28.7 pg 27.0 - 31.0 10/15/2017 [facility] HEMATOLOGY MCHC 35.2 g/dL 32.0 - 36.0 10/15/2017 [facility] HEMATOLOGY RDW 14.0 % 11.5 - 14.5 10/15/2017 [facility] HEMATOLOGY MCV 81.5 fL 80.0 - 94.0 10/15/2017 [facility] HEMATOLOGY Hct 28.0 % 42.0 - 54.0 10/15/2017 [facility] HEMATOLOGY Hgb 9.9 g/dL 14.0 - 18.0 10/15/2017 [facility] HEMATOLOGY Hct 28.4 % 42.0 - 54.0 10/14/2017 [facility] HEMATOLOGY MCV 81.1 fL 80.0 - 94.0 10/14/2017 [facility] HEMATOLOGY MCH 28.7 pg 27.0 - 31.0 10/14/2017 [facility] HEMATOLOGY RBC 3.50 M/CMM 4.70 - 6.10 10/14/2017 [facility] HEMATOLOGY Hgb 10.0 g/dL 14.0 - 18.0 10/14/2017 [facility] HEMATOLOGY MCHC 35.4 g/dL 32.0 - 36.0 10/14/2017 [facility] HEMATOLOGY MPV 8.7 fL 7.4 - 10.4 10/14/2017 [facility] HEMATOLOGY RDW 13.4 % 11.5 - 14.5 10/14/2017 [facility] HEMATOLOGY Platelet 167 K/CMM 133 - 450 10/14/2017 [facility] HEMATOLOGY WBC 8.8 K/CMM 3.7 - 10.4 10/14/2017 [facility] CHEM PANEL Glucose Lvl 98 mg/dL 70 - 99 10/14/2017 [facility] CHEM PANEL Creatinine Lvl 1.62 mg/dL 0.50 - 1.40 10/14/2017 [facility] CHEM PANEL Sodium Lvl 132 meq/L 135 - 145 10/14/2017 [facility] CHEM PANEL BUN 31 mg/dL 7 - 22 10/14/2017 [facility] CHEM PANEL Potassium Lvl 4.6 meq/L 3.5 - 5.1 10/14/2017 Result Comment: Moderately hemolyzed [facility] CHEM PANEL Chloride Lvl 100 meq/L 95 - 109 10/14/2017 [facility] CHEM PANEL Calcium Lvl 7.8 mg/dL 8.5 - 10.5 10/14/2017 [facility] CHEM PANEL AGAP 14.6 meq/L 10.0 - 20.0 10/14/2017 [facility] CHEM PANEL CO2 22 meq/L 24 - 32 10/14/2017 [facility] CHEM PANEL eGFR 47 mL/min/1.73m2 10/14/2017 Result Comment: The eGFR is calculated using the [...] from the National Kidney Disease Education Program (NKDEP) which additionally recommends that when the eGFR is used in patients with extremes of body mass index for purposes of drug dosing, the eGFR should be multiplied by the estimated BMI. [facility] Pelvis wo IV contrast CT Pelvis wo IV contrast CT EXAM: CT PELVIS WITHOUT CONTRAST DATE: 10/13/2017 1:48 PM TECHNICAL ACCOUNT EXECUTIVE INDICATION: - postop hardware placement COMPARISON: Chest, abdomen, and pelvis CT 10/13/2017 at 12:50 AM TECHNIQUE: Noncontrast helical CT imaging of the pelvis with multiplanar reformats. Additional 3-D volume rendered images were obtained on scanner workstation. DLP: 594 mGy*cm DISCUSSION: Satisfactory alignment of bilateral superior pubic ramus fractures post percutaneous screw fixation. Screws remain within the osseous cord worse. Satisfactory alignment of left longitudinal zone 2 sacral ala fracture fixated with single left S1 transsacral screw with washer. No hardware malalignment. Unchanged left L5 transverse process fracture. Bilateral L5 pars defects. Bladder is partially distended, containing contrast. Small amount of hemorrhage in the space of Retzius. Enlarged prostate extending into the bladder base again noted. Mild presacral hematoma. IMPRESSION: Satisfactory appearance of pelvis post percutaneous screw fixation of left sacral ala fracture and bilateral superior pubic rami fractures. 10/13/2017 - - Read by: Jorge A Goldberg MD Dictated Date/time: 10/13/17 19:34 Electronically Signed by: Jorge A Goldberg MD 10/13/17 19:44 FINAL REPORT [facility] CHEM PANEL eGFR 55 mL/min/1.73m2 10/13/2017 Result Comment: The eGFR is calculated using the [...] from the National Kidney Disease Education Program (NKDEP) which additionally recommends that when the eGFR is used in patients with extremes of body mass index for purposes of drug dosing, the eGFR should be multiplied by the estimated BMI. [facility] CHEM PANEL BUN 28 mg/dL 7 - 22 10/13/2017 [facility] CHEM PANEL Glucose Lvl 139 mg/dL 70 - 99 10/13/2017 [facility] CHEM PANEL Creatinine Lvl 1.41 mg/dL 0.50 - 1.40 10/13/2017 [facility] CHEM PANEL Chloride Lvl 102 meq/L 95 - 109 10/13/2017 [facility] CHEM PANEL Potassium Lvl 5.2 meq/L 3.5 - 5.1 10/13/2017 [facility] CHEM PANEL Sodium Lvl 136 meq/L 135 - 145 10/13/2017 [facility] CHEM PANEL CO2 25 meq/L 24 - 32 10/13/2017 [facility] CHEM PANEL AGAP 14.2 meq/L 10.0 - 20.0 10/13/2017 [facility] CHEM PANEL Calcium Lvl 8.1 mg/dL 8.5 - 10.5 10/13/2017 [facility] CHEM PANEL Bili Indirect UNABLE TO CALCULATE 0.0 - 1.0 10/13/2017 [facility] CHEM PANEL Alk Phos 45 unit/L 39 - 136 10/13/2017 [facility] CHEM PANEL Bili Total 0.7 mg/dL 0.2 - 1.3 10/13/2017 [facility] CHEM PANEL Bili Direct null 0.0 - 0.3 10/13/2017 [facility] CHEM PANEL AST 76 unit/L 0 - 37 10/13/2017 [facility] CHEM PANEL Albumin Lvl 3.6 g/dL 3.5 - 5.0 10/13/2017 [facility] CHEM PANEL Total Protein 7.2 g/dL 6.4 - 8.4 10/13/2017 [facility] CHEM PANEL ALT 65 unit/L 0 - 65 10/13/2017 [facility] CHEM PANEL A/G Ratio 1.0 0.7 - 1.6 10/13/2017 [facility] CHEM PANEL Globulin 3.6 g/dL 2.7 - 4.2 10/13/2017 [facility] ELECTROLYTES Sodium Lvl 135 meq/L 135 - 145 10/13/2017 [facility] ELECTROLYTES Creatinine Lvl 1.39 mg/dL 0.50 - 1.40 10/13/2017 [facility] ELECTROLYTES CO2 25 meq/L 24 - 32 10/13/2017 [facility] ELECTROLYTES Chloride Lvl 101 meq/L 95 - 109 10/13/2017 [facility] ELECTROLYTES Calcium Lvl 8.5 mg/dL 8.5 - 10.5 10/13/2017 [facility] ELECTROLYTES Potassium Lvl 6.5 meq/L 3.5 - 5.1 10/13/2017 Result Comment: moderate hemolysis, Critical Result(s) called to Christie Licea at 10/13/2017 05:04 [address] stp. Read back OK. [facility] ELECTROLYTES eGFR 56 mL/min/1.73m2 10/13/2017 Result Comment: The eGFR is calculated using the [...] from the National Kidney Disease Education Program (NKDEP) which additionally recommends that when the eGFR is used in patients with extremes of body mass index for purposes of drug dosing, the eGFR should be multiplied by the estimated BMI. [facility] ELECTROLYTES BUN 28 mg/dL 7 - 22 10/13/2017 [facility] ELECTROLYTES Glucose Lvl 145 mg/dL 70 - 99 10/13/2017 [facility] ELECTROLYTES AGAP 15.5 meq/L 10.0 - 20.0 10/13/2017 [facility] URINE AND STOOL UA Leuk Est Negative (10/13/17 4:41 AM) Negative 10/13/2017 [facility] URINE AND STOOL UA Nitrite Negative (10/13/17 4:41 AM) Negative 10/13/2017 [facility] URINE AND STOOL UA Urobilinogen 0.2 EU/dL 0.1 - 1.0 10/13/2017 [facility] URINE AND STOOL UA Blood Large *ABN* (10/13/17 4:41 AM) Negative 10/13/2017 [facility] URINE AND STOOL UA Ketones Negative *NA* (10/13/17 4:41 AM) Negative 10/13/2017 [facility] URINE AND STOOL UA Bili Negative *NA* (10/13/17 4:41 AM) Negative 10/13/2017 [facility] URINE AND STOOL UA Protein 30 mg/dL Negative mg/dL 10/13/2017 [facility] URINE AND STOOL UA Glucose Negative (10/13/17 4:41 AM) Negative 10/13/2017 [facility] URINE AND STOOL UA Spec Grav 1.015 <=1.030 10/13/2017 [facility] URINE AND STOOL UA pH 5.5 5.0 - 8.0 10/13/2017 [facility] URINE AND STOOL UA Turbidity Slight Cloudy (10/13/17 4:41 AM) Clear 10/13/2017 [facility] URINE AND STOOL UA Color Yellow *NA* (10/13/17 4:41 AM) Yellow 10/13/2017 [facility] URINE AND STOOL UA Sq Epi Rare /LPF Few /LPF 10/13/2017 [facility] URINE AND STOOL UA WBC 0-2 /HPF None Seen /HPF 10/13/2017 [facility] URINE AND STOOL UA RBC 6-10 /HPF 0 - 2 10/13/2017 [facility] URINE AND STOOL UA Bacteria Few /HPF None Seen /HPF 10/13/2017 [facility] HEMATOLOGY G-value Rapid 7.0 K d/sc 5.0 - 11.6 10/13/2017 [facility] HEMATOLOGY Estimated % Lysis Rapid 0.0 % 0.0 - 7.5 10/13/2017 [facility] HEMATOLOGY Max Amplitude Rapid 58 mm 52 - 71 10/13/2017 [facility] HEMATOLOGY R-time Rapid 0.7 min 0.4 - 0.7 10/13/2017 [facility] HEMATOLOGY Split Point Rapid 0.5 min 10/13/2017 [facility] HEMATOLOGY Angle Rapid 71 degrees 64 - 80 10/13/2017 [facility] HEMATOLOGY K-time Rapid 1.8 min 0.6 - 2.3 10/13/2017 [facility] HEMATOLOGY ACT (TEG) Rapid 113 s 86 - 118 10/13/2017 [facility] HEMATOLOGY PTT 27.4 s 22.9 - 35.8 10/13/2017 [facility] HEMATOLOGY PT 13.5 s 12.0 - 14.7 10/13/2017 [facility] HEMATOLOGY INR 1.03 0.85 - 1.17 10/13/2017 [facility] HEMATOLOGY MCHC 34.5 g/dL 32.0 - 36.0 10/13/2017 [facility] HEMATOLOGY Platelet 159 K/CMM 133 - 450 10/13/2017 [facility] HEMATOLOGY RDW 13.3 % 11.5 - 14.5 10/13/2017 [facility] HEMATOLOGY Hct 36.2 % 42.0 - 54.0 10/13/2017 [facility] HEMATOLOGY Hgb 12.5 g/dL 14.0 - 18.0 10/13/2017 [facility] HEMATOLOGY MCH 28.2 pg 27.0 - 31.0 10/13/2017 [facility] HEMATOLOGY MCV 81.7 fL 80.0 - 94.0 10/13/2017 [facility] HEMATOLOGY MPV 9.2 fL 7.4 - 10.4 10/13/2017 [facility] HEMATOLOGY WBC 13.1 K/CMM 3.7 - 10.4 10/13/2017 [facility] HEMATOLOGY RBC 4.43 M/CMM 4.70 - 6.10 10/13/2017 [facility] HEMATOLOGY Lymphocytes 8.1 % 20.0 - 40.0 10/13/2017 [facility] HEMATOLOGY Monocytes 4.5 % 2.0 - 12.0 10/13/2017 [facility] HEMATOLOGY Basophils 0.6 % 0.0 - 1.0 10/13/2017 [facility] HEMATOLOGY Segs 86.8 % 45.0 - 75.0 10/13/2017 [facility] HEMATOLOGY Segs-Bands # 11.4 K/CMM 1.5 - 8.1 10/13/2017 [facility] HEMATOLOGY Lymphocytes # 1.1 K/CMM 1.0 - 5.5 10/13/2017 [facility] HEMATOLOGY Monocytes # 0.6 K/CMM 0.0 - 0.8 10/13/2017 [facility] HEMATOLOGY Basophils # 0.1 K/CMM 0.0 - 0.2 10/13/2017 [facility] BLOOD BANK RESULTS Antibody Scrn Negative (10/13/17 12:26 AM) 10/13/2017 [facility] BLOOD BANK RESULTS ABO/Rh O POS 10/13/2017 [facility] Cystogram DX Cystogram DX EXAM: CYSTOGRAM DX DATE: 10/13/2017 at 0357 hours INDICATION: - concern bladder injury ADDITIONAL INFORMATION: None. COMPARISON: CT chest, abdomen and pelvis from the same day TECHNIQUE: Approximately 500 mL of Cysto-Conray II was infused through the patient's existing Gruber catheter. Early, delayed filling, and post void radiographs were obtained in AP projections. DISCUSSION: Preliminary radiograph: Fractures of bilateral superior and inferior pubic rami are identified and are better characterized on the comparison CT chest abdomen and pelvis. The minimally comminuted left sacral alae fracture is also visualized. Residual contrast is noted within the urinary bladder and within the bilateral distal ureters. Urinary bladder: Bladder contours are smooth. No extravasated contrast is identified during filling or following voiding. No significant post void residual. IMPRESSION: 1. No evidence of bladder injury. 2. Multiple pelvic fractures which are better delineated on the comparison CT. UT SECTION: ER 10/13/2017 - - This report was dictated by a Regulator Assembler/Fellow. I have personally reviewed the images as well as the Resident's interpretation and agree with the findings. Read by: Guanako Goins MD Resident: Guanako Goins MD Dictated Date/time: 10/13/17 04:24 Electronically Signed by: Jonas Jarquin MD 10/13/17 05:36 FINAL REPORT [facility] Chest/Abdomen/Pelvis w IV contrast CT Chest/Abdomen/Pelvis w IV contrast CT EXAM: CT CHEST WITH CONTRAST EXAM: CT ABDOMEN AND PELVIS WITH CONTRAST DATE: 10/13/2017 12:50 AM TECHNICAL ACCOUNT EXECUTIVE INDICATION: - multiple pelvic fx on OSH read COMPARISON: None available TECHNIQUE: Volumetric CT acquisition of the chest, abdomen and pelvis following intravenous administration of contrast. Delayed imaging was then performed through the abdomen and pelvis, using a radiation reduction technique. Axial, coronal and sagittal reformats. Contrast phases: Venous and delayed IV contrast: 100 mL Visipaque 320 Oral contrast: None. DLP: 1668 mGy-cm UT SECTION: ER FINDINGS: Lines and tubes: None. Lower Neck: Supraclavicular soft tissues are unremarkable. Thoracic Aorta and Mediastinum: No mediastinal hematoma or thoracic aortic injury. Normal heart and pericardium. Lungs, Pleura, Diaphragm: No pulmonary contusions. No pleural effusion or pneumothorax. Subsegmental atelectasis is noted at the right lung base. No diaphragmatic injury. Liver and biliary tree: Normal. No injury. No biliary abnormality. Gallbladder: The gallbladder is slightly contracted with layering densities. Pancreas: Normal. No injury. Spleen: Normal. No injury. Adrenals: Normal. No injury. Kidneys and ureters: No injury. Both kidneys excrete contrast on delayed phase imaging. A proteinaceous/hemorrhagic cyst is noted in the interpolar region of the right kidney (Bosniak class II). Bladder: No evidence of underlying bladder injury is noted. Reproductive organs: No injury. Moderate prostatomegaly is noted with the prostate measuring 4.5 cm in diameter and indenting upon the base of the urinary bladder. The prostate also demonstrates a heterogenous appearance with superimposed areas of hypoattenuation. Hyperdense clips are noted in the anterior penile shaft which may represent changes of prior vasectomy. Gastrointestinal tract: Normal. No bowel injury. Peritoneum and retroperitoneum: Extraperitoneal hemorrhagic fluid is noted most prominently at the anterior aspect of the pelvis. Lymph nodes: No lymphadenopathy is detected. Vasculature: No vascular injury. Spine/ Bones: -Comminuted fractures of the bilateral superior pubic rami are identified with the left superior ramus fracture extending into the pubic body and pubic root. The left superior pubic ramus fracture also extends into the anterior wall of the acetabulum and into the hip joint. The right superior pubic ramus fracture extends to the pubic root and also extends into the quadrilateral plate of the right acetabulum (series 15 image 98). -Moderately comminuted fractures of the bilateral inferior pubic rami are noted (series 15 image 117). -A minimally comminuted fracture of the right ischial tuberosity is also noted (series 15 images 113-130). -A moderately comminuted zone 1 left sacral ala fracture is noted with intra-articular extension into the left sacroiliac joint. -A fracture of the left posterior iliac bone is also noted with extension into the left sacroiliac joint (series 15 image 37-38). No acute abnormality of the spine. Bilateral pars defects are noted at the lowest lumbar level. Soft tissues: Normal. IMPRESSION: 1. Lateral compression fracture of the [...] which may represent underlying changes of prostatitis. 10/13/2017 - - This report was dictated by a Regulator Assembler/Fellow. I have personally reviewed the images as well as the Resident's interpretation and agree with the findings. Read by: Guanako Goins MD Resident: Guanako Goins MD Dictated Date/time: 10/13/17 01:08 Electronically Signed by: Jonas Jarquin MD 10/13/17 05:14 FINAL REPORT [facility] Vital Signs Vital Sign Value Date Comments Source Respitory Rate 20 10/16/2017 [facility] Systolic (mm Hg) 136 10/16/2017 [facility] Diastolic (mm Hg) 77 10/16/2017 [facility] Heart Rate 53 10/16/2017 [facility] Temperature Oral (F) 98.3 F 10/16/2017 [facility] Respitory Rate 20 10/16/2017 [facility] Temperature Oral (F) 98.8 F 10/16/2017 [facility] Systolic (mm Hg) 128 10/16/2017 [facility] Diastolic (mm Hg) 79 10/16/2017 [facility] Heart Rate 68 10/16/2017 [facility] Systolic (mm Hg) 123 10/16/2017 [facility] Diastolic (mm Hg) 73 10/16/2017 [facility] Temperature Oral (F) 98.0 F 10/16/2017 [facility] Heart Rate 71 10/16/2017 [facility] Respitory Rate 18 10/16/2017 [facility] Height 177.8 cm 10/13/2017 [facility] Weight 95.455 10/13/2017 [facility] BMI Calculated 30.2 10/13/2017 [facility] BMI Calculated 30.2 10/13/2017 [facility] Height 177.8 cm 10/13/2017 [facility] Weight 95.455 10/13/2017 [facility] Encounters Location Location Details Encounter Type Encounter Number Reason For Visit Attending Provider ADM Date DC Date Status Source [facility] [place] [place] Inpatient [id number] Reyes Regaladosu 10/13/2017 10/16/2017 [facility] Procedures Procedure Code Date Perfomer Comments Source Repair of rotator cuff of shoulder [id number] 10/29/2011 [facility]
[2018-10-18 12:10] VITALS: BP 145/95
--- NOTE | 2018-10-18 12:33 | Operative Report ---
DATE OF PROCEDURE: October 18, 2018 REFERRING PHYSICIAN: Dr. Elver Shea. PROCEDURES PERFORMED: 1. Esophagogastroduodenoscopy with biopsies. 2. Colonoscopy with polypectomy. INDICATIONS FOR ESOPHAGOGASTRODUODENOSCOPY: Heartburn. INDICATIONS FOR COLONOSCOPY: Surveillance colonoscopy, personal history of colon polyps. MEDICATION: Patient was done under MAC. Please see anesthesiologist's note. PROCEDURE: With the patient in the left lateral decubitus position, the flexible fiberoptic Olympus gastroscope was introduced into the esophagus under direct visualization without any difficulty. There was some patchy erythema noted in the distal esophagus. Minute tongues of velvety red mucosa were noted to extend proximally from the GE junction, and biopsies were obtained to rule out Hong's. The scope was then advanced with ease into the stomach, and mucosa overlying the antrum and the body revealed some patchy erythema and low-grade to moderate edema, and biopsies were obtained and sent to stain for H. pylori. The pylorus was of normal contour and shape, was intubated with ease, and the scope was advanced all the way to the 2nd portion of the duodenum. The scope was then withdrawn slowly. An approximately 1 cm sessile flat lesion was noted in the proximal 2nd portion, and that was biopsied. The mucosa overlying the duodenal bulb appeared to be within normal limits. The scope was then withdrawn back into the stomach and retroflexed, and mucosa overlying the fundus and the cardia appeared to be within normal limits. The scope was then straightened out. It was subsequently withdrawn. Patient tolerated the procedure well. IMPRESSION: 1. Distal esophagitis. 2. Rule out Hong's esophagus. 3. Gastritis biopsied. Biopsies sent to stain for H. pylori. 4. Approximately 1 cm sessile flat lesion proximal 2nd portion biopsied. PLAN: Follow up histology. Initiate Protonix 40 mg 1 p.o. q.a.m. a.c. Patient was then turned around after adequate lubrication of the anal canal, the flexible fiberoptic Olympus colonoscope was inserted into the rectum with ease and advanced all the way to the cecum. It was then withdrawn slowly. Mucosa overlying the cecum, ascending colon, transverse colon and descending colon appeared to be within normal limits. Diverticular disease was noted to involve the sigmoid colon. One minute polyp was hot biopsied from the sigmoid colon. The rectum appeared to be within normal limits. The scope was then retroflexed into the distal rectum and small internal hemorrhoids were noted, none of which was actively bleeding. The scope was then straightened out. It was subsequently withdrawn. Patient tolerated procedure well. IMPRESSION: 1. Diverticulosis. 2. Sigmoid colon polyp, minute, hot biopsied. 3. Internal hemorrhoids, none actively bleeding. PLAN: Follow up histology. Initiate high-fiber low-fat diet. Initiate high-fiber supplement. Start VSL#3 one p.o. daily. Patient might benefit from a followup colonoscopy in 3 to 5 years. Job#: [id number] EV cc:ELVER SHEA DO
== END | disposition home or self-care (01) ==
LOC: ENDO 08:03
PROVIDERS: ATTEND Internal Medicine Gastroenterology
DX: K29.70 Gastritis, unspecified, without bleeding (principal); K63.5 Polyp of colon; K20.9 Esophagitis, unspecified; K31.89 Other diseases of stomach and duodenum; K57.30 Diverticulosis of large intestine without perforation or abscess without bleeding; K59.00 Constipation, unspecified; K64.8 Other hemorrhoids; I10 Essential (primary) hypertension; R00.1 Bradycardia, unspecified; E78.00 Pure hypercholesterolemia, unspecified; Z01.810 Encounter for preprocedural cardiovascular examination
CPT/HCPCS: 43239; 45384; 93005; J1610; J1980; J2250

== ENCOUNTER → 2021-09-30 | Day surgery (SDC) | payer BC ==
[~2021-09-30] MED LIST changes: -GLUCAGON FOR INJ 1 MG VIAL ONE; -HYOSCYAMINE SULFATE 0.5 MG/ML INJ ONE; +LISINOPRIL40 MG; +METOCLOPRAMIDE HCL 10 MG/2ML VIAL ONE; +ONDANSETRON HCL INJ 2MG/ML 2ML 2 MG/ML VIAL ONE; +POVIDONE IODINE 0.05% 0.05 % ML PO ONE; +PROPOFOL IV EMULSION 10 MG/ML 20 ML VIAL ONE; -PROPOFOL IV EMULSION 10 MG/ML 50 ML VIAL ONE; +[UNRECOGNIZED DRUG - OTHER]
[2021-09-30 09:40] VITALS: BP 121/74
== END | disposition home or self-care (01) ==
LOC: OR 06:08
PROVIDERS: ATTEND Internal Medicine Gastroenterology
DX: Z09 Encounter for follow-up examination after completed treatment for conditions other than malignant neoplasm (principal); K63.5 Polyp of colon; K57.30 Diverticulosis of large intestine without perforation or abscess without bleeding; K64.8 Other hemorrhoids; I10 Essential (primary) hypertension; E78.00 Pure hypercholesterolemia, unspecified; R00.1 Bradycardia, unspecified; Z01.810 Encounter for preprocedural cardiovascular examination; Z01.812 Encounter for preprocedural laboratory examination; Z20.822 Contact with and (suspected) exposure to COVID-19; Z79.899 Other long term (current) drug therapy; Z68.28 Body mass index [BMI] 28.0-28.9, adult
CPT/HCPCS: 45384; 93005; J2250; J2405; J2704; J2765; J3010; U0002; 45378

== ENCOUNTER 2024-06-07 15:38 | Emergency (ER) | payer BC ==
[~2024-06-07] VITALS: Ht 177.8 cm; Wt 81.6 kg
[~2024-06-07 15:38] MED LIST changes: -FENTANYL CITRATE/PF 100MCG/2 ML INJ ONE; -METOCLOPRAMIDE HCL 10 MG/2ML VIAL ONE; -MIDAZOLAM HCL 2 MG/2 ML VIAL ONE; -ONDANSETRON HCL INJ 2MG/ML 2ML 2 MG/ML VIAL ONE; -POVIDONE IODINE 0.05% 0.05 % ML PO ONE; -PROPOFOL IV EMULSION 10 MG/ML 20 ML VIAL ONE
[2024-06-07] MEDS: TETANUS/DIPHTHERIA TOX ADULT 0.5 ML SYR IM ONE (16:22)
[2024-06-07] MEDS: LIDOCAINE HCL 1% LOCAL INJ 20 ML VIAL INJ ONE (17:12)
[2024-06-07] MEDS: BUPIVACAINE HCL 0.25% 10ML MPF VIAL INJ ONE (17:13)
[2024-06-07] MEDS ORDERED: CEPHALEXIN500 MG PO (17:35)
[2024-06-07] MEDS ORDERED: BACTRIM DS TAB1 EACH PO (17:35)
[2024-06-07] MEDS ORDERED: HYDROCODON-ACE1 EA11 PO (17:35)
[2024-06-07 17:44] VITALS: PULSE 74; RESP 16; TEMP 98.5; O2SAT 97
== END 2024-06-07 17:58 | disposition home or self-care (01) ==
LOC: ER 15:45
DX: S62.615B Displaced fracture of proximal phalanx of left ring finger, initial encounter for open fracture (principal); W01.0XXA Fall on same level from slipping, tripping and stumbling without subsequent striking against object, initial encounter; Y93.01 Activity, walking, marching and hiking; Y92.89 Other specified places as the place of occurrence of the external cause; I10 Essential (primary) hypertension
CPT/HCPCS: 12001; 73130; 90471; 90714; 99284; J2001

== ENCOUNTER → 2024-12-12 | Day surgery (SDC) | payer BC ==
[~2024-12-12] MED LIST changes: +ALLOPURINOL300 MG PO; +BACTRIM DS TAB1 EACH PO; +BALANCE PO; +CEPHALEXIN500 MG PO; +CIALIS10 MG PO; +DOXAZOSIN MESYLA2 MG PO; +HYDROCHLOROTHIA25 MG PO; +HYDROCODON-ACE1 EA11 PO; +LIDOCAINE HCL 2% LOCAL INJ 5 ML SDV VIAL INJ ONE; +MIDAZOLAM HCL 2 MG/2 ML VIAL ONE; +PANTOPRAZOLE SO40 MG PO; +PROPOFOL IV EMULSION 50 ML IV ONE; +THRIVE PO
[2024-12-12] MEDS: LACTATED RINGER'S 1,000 ML ONE (07:34)
[2024-12-12 10:33] VITALS: BP 121/68; PULSE 78; RESP 17; O2SAT 98
== END | disposition home or self-care (01) ==
LOC: OR 06:55
PROVIDERS: ATTEND Internal Medicine Gastroenterology
DX: Z12.11 Encounter for screening for malignant neoplasm of colon (principal); Z86.0100 Personal history of colon polyps, unspecified; K57.30 Diverticulosis of large intestine without perforation or abscess without bleeding; K64.8 Other hemorrhoids; K21.9 Gastro-esophageal reflux disease without esophagitis; I10 Essential (primary) hypertension; E78.5 Hyperlipidemia, unspecified; R00.1 Bradycardia, unspecified; Z79.82 Long term (current) use of aspirin; Z79.899 Other long term (current) drug therapy; Z80.0 Family history of malignant neoplasm of digestive organs
CPT/HCPCS: 45378; 93005; J2003; J2250; J2704; J7121